=== PATIENT | male | born 1935 | race Caucasian/White ===

== ENCOUNTER 2017-05-29 09:31 | Inpatient (IN) | payer MEDICARE ==
[2017-05-29] MEDS ORDERED: ONDANSETRON 4 MG/2 ML VIAL IVP STA (09:47)
[2017-05-29] MEDS ORDERED: MORPHINE SULFATE 4MG/4ML SYRG IVP ONE (09:48)
--- NOTE | 2017-05-29 10:03 | ED ---
Abdominal Pain HPI - General Chief Complaint: Abdominal Pain Stated Complaint: abd pain Time Seen by Provider: 05/29/17 09:43 Source: patient, RN notes reviewed Mode of arrival: ambulatory Limitations: no limitations - History of Present Illness Initial Comments: This an 81-year-old male presents emergency Department with chief complaint of abdominal pain, abdominal distention. Patient states she's been having worsening pain over the few days. Patient is home which she'll get a paracentesis. Patient had several daughters lifetime. 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 Patient is on break doing chemotherapy. Patient had prior abdominal surgeries including colon resection, liver resection. Patient states that he feels that he needs another paracentesis he's noticed distention weight gain and similar pain. He states his bowel movements have a more firm but this is now the usual. He denies any fevers, chills, chest pain, shortness of breath. Patient states he cannot tolerate the pain at this time. - Related Data Allergies Allergy/AdvReac Type Severity Reaction Status Date / Time No Known Allergies Allergy Verified 05/29/17 09:39 Review of Systems ROS Statement: Those systems with pertinent positive or pertinent negative responses have been documented in the HPI. ROS Other: All systems not noted in ROS Statement are negative. Past Medical History Past Medical History: Cancer, Hyperlipidemia, Hypertension Additional Past Medical History / Comment(s): COLON CANCER WITH METASTASIS TO LIVER. LAST CHEMO TX WAS IN APRIL 2017. History of Any Multi-Drug Resistant Organisms: None Reported Additional Past Surgical History / Comment(s): LIVER SURGERY AND COLON RESECTION Past Psychological History: No Psychological Hx Reported Smoking Status: Never smoker Past Alcohol Use History: Occasional Past Drug Use History: None Reported General Exam Limitations: no limitations General appearance: alert, in no apparent distress Head exam: Present: atraumatic, normocephalic, normal inspection Respiratory exam: Present: normal lung sounds bilaterally. Absent: respiratory distress, wheezes, rales, rhonchi, stridor Cardiovascular Exam: Present: regular rate, normal rhythm, normal heart sounds. Absent: systolic murmur, diastolic murmur, rubs, gallop, clicks GI/Abdominal exam: Present: soft, distended, tenderness, normal bowel sounds. Absent: guarding, rebound, rigid Back exam: Absent: CVA tenderness (R), CVA tenderness (L) Skin exam: Present: warm, dry, intact, normal color. Absent: rash Course Vital Signs 05/29/17 09:34 Temperature 98.1 F Pulse Rate 89 Respiratory 16 Rate Blood Pressure 158/78 O2 Sat by Pulse 98 Oximetry Medical Decision Making - Lab Data Result diagrams: 05/29/17 10:04 05/29/17 10:04 Lab Results 05/29/17 05/29/17 05/29/17 Range/Units 10:04 10:04 10:04 WBC 4.3 (3.8-10.6) k/uL RBC 3.87 L (4.30-5.90) m/uL Hgb 12.4 L (13.0-17.5) gm/dL Hct 38.7 L (39.0-53.0) % MCV 99.9 (80.0-100.0) fL MCH 32.0 (25.0-35.0) pg MCHC 32.1 (31.0-37.0) g/dL RDW 22.8 H (11.5-15.5) % Plt Count 169 (150-450) k/uL Neutrophils % 80 % Lymphocytes % 11 % Monocytes % 5 % Eosinophils % 2 % Basophils % 0 % Neutrophils # 3.5 (1.3-7.7) k/uL Lymphocytes # 0.5 L (1.0-4.8) k/uL Monocytes # 0.2 (0-1.0) k/uL Eosinophils # 0.1 (0-0.7) k/uL Basophils # 0.0 (0-0.2) k/uL Hypochromasia Slight Poikilocytosis (manual Present Anisocytosis Moderate Macrocytosis Marked Target Cells Present PT 11.5 (9.0-12.0) sec INR 1.2 H (<1.2) APTT 36.9 H (22.0-30.0) sec Sodium 141 (137-145) mmol/L Potassium 4.4 (3.5-5.1) mmol/L Chloride 110 H (98-107) mmol/L Carbon Dioxide 21 L (22-30) mmol/L Anion Gap 10 mmol/L BUN 28 H (9-20) mg/dL Creatinine 1.42 H (0.66-1.25) mg/dL Est GFR (CKD-EPI)AfAm 54 (>60 ml/min/1.73 sqM) Est GFR (CKD-EPI)NonAf 47 (>60 ml/min/1.73 sqM) Glucose 104 H (74-99) mg/dL Calcium 9.5 (8.4-10.2) mg/dL Total Bilirubin 0.5 (0.2-1.3) mg/dL AST 32 (17-59) U/L ALT 35 (21-72) U/L Alkaline Phosphatase 137 H (38-126) U/L Total Protein 5.8 L (6.3-8.2) g/dL Albumin 3.3 L (3.5-5.0) g/dL Amylase 55 (30-110) U/L Lipase 68 (23-300) U/L Urine Color Urine Appearance (Clear) Urine pH (5.0-8.0) Ur Specific [place] (1.001-1.035) Urine Protein (Negative) Urine Glucose (UA) (Negative) Urine Ketones (Negative) Urine Blood (Negative) Urine Nitrite (Negative) Urine Bilirubin (Negative) Urine Urobilinogen (<2.0) mg/dL Ur Leukocyte Esterase (Negative) Urine WBC (0-5) /hpf Ur Squamous Epith Cells (0-4) /hpf Urine Bacteria (None) /hpf Hyaline Casts (0-2) /lpf Urine Mucus (None) /hpf 05/29/17 Range/Units 10:10 WBC (3.8-10.6) k/uL RBC (4.30-5.90) m/uL Hgb (13.0-17.5) gm/dL Hct (39.0-53.0) % MCV (80.0-100.0) fL MCH (25.0-35.0) pg MCHC (31.0-37.0) g/dL RDW (11.5-15.5) % Plt Count (150-450) k/uL Neutrophils % % Lymphocytes % % Monocytes % % Eosinophils % % Basophils % % Neutrophils # (1.3-7.7) k/uL Lymphocytes # (1.0-4.8) k/uL Monocytes # (0-1.0) k/uL Eosinophils # (0-0.7) k/uL Basophils # (0-0.2) k/uL Hypochromasia Poikilocytosis (manual Anisocytosis Macrocytosis Target Cells PT (9.0-12.0) sec INR (<1.2) APTT (22.0-30.0) sec Sodium (137-145) mmol/L Potassium (3.5-5.1) mmol/L Chloride (98-107) mmol/L Carbon Dioxide (22-30) mmol/L Anion Gap mmol/L BUN (9-20) mg/dL Creatinine (0.66-1.25) mg/dL Est GFR (CKD-EPI)AfAm (>60 ml/min/1.73 sqM) Est GFR (CKD-EPI)NonAf (>60 ml/min/1.73 sqM) Glucose (74-99) mg/dL Calcium (8.4-10.2) mg/dL Total Bilirubin (0.2-1.3) mg/dL AST (17-59) U/L ALT (21-72) U/L Alkaline Phosphatase (38-126) U/L Total Protein (6.3-8.2) g/dL Albumin (3.5-5.0) g/dL Amylase (30-110) U/L Lipase (23-300) U/L Urine Color Yellow Urine Appearance Cloudy (Clear) Urine pH 5.5 (5.0-8.0) Ur Specific [place] 1.019 (1.001-1.035) Urine Protein 3+ H (Negative) Urine Glucose (UA) Negative (Negative) Urine Ketones Negative (Negative) Urine Blood Negative (Negative) Urine Nitrite Negative (Negative) Urine Bilirubin Negative (Negative) Urine Urobilinogen 2.0 (<2.0) mg/dL Ur Leukocyte Esterase Negative (Negative) Urine WBC 2 (0-5) /hpf Ur Squamous Epith Cells <1 (0-4) /hpf Urine Bacteria Rare H (None) /hpf Hyaline Casts 5 H (0-2) /lpf Urine Mucus Few H (None) /hpf Disposition Clinical Impression: Abdominal distention, Ascites, Colon cancer, Intractable abdominal pain Disposition: ADMITTED IP TO THIS [facility] Condition: Stable Referrals: Salome Caba MD [Primary Care Provider] - 1-2 days
[2017-05-29 10:15] LABS: Anisocytosis Moderate; Basophils % (A) 0 %; Eosinophils # (A) 0.1 k/uL (0-0.7); Eosinophils % (A) 2 %; HCT 38.7 % (39.0-53.0); HGB 12.4 gm/dL (13.0-17.5); Hypochromasia Slight; Lymphocytes # (A) 0.5 k/uL (1.0-4.8); Lymphocytes % (A) 11 %; MCHC 32.1 g/dL (31.0-37.0); MCV 99.9 fL (80.0-100.0); Macrocytosis Marked; Mean Platelet Volume 8.5; Monocytes # (A) 0.2 k/uL (0-1.0); Monocytes % (A) 5 %; Neutrophils # (A) 3.5 k/uL (1.3-7.7); Neutrophils % (A) 80 %; Platelet Count 169 k/uL (150-450); RBC 3.87 m/uL (4.30-5.90); RDW 22.8 % (11.5-15.5); WBC 4.3 k/uL (3.8-10.6)
[2017-05-29 10:24] LABS: INR 1.2 (<1.2); Partial Thromboplastin Time 36.9 sec (22.0-30.0); Prothrombin Time 11.5 sec (9.0-12.0)
[2017-05-29 10:29] LABS: Appearance,Urine Cloudy (Clear); Bacteria,Urine Rare /hpf; Bilirubin,Urine Negative (Negative); Blood,Urine Negative (Negative); Color,Urine Yellow; Glucose,Urine (UA) Negative (Negative); Hyaline Casts,Urine 5 /lpf (0-2); Ketones,Urine Negative (Negative); Leukocyte Esterase,Urine Negative (Negative); Mucus,Urine Few /hpf; Nitrite,Urine Negative (Negative); PH, Urine 5.5 (5.0-8.0); Protein,Urine 3+ (Negative); Specific Gravity,Urine 1.019 (1.001-1.035); Squamous Epithelial Cell,Urine <1 /hpf (0-4); WBC,Urine 2 /hpf (0-5)
[2017-05-29 10:32] LABS: Poikilocytosis (M) Present; Target Cells Present
--- NOTE | 2017-05-29 10:33 | XR ---
EXAMINATION TYPE: XR KUB , 3 VIEWS DATE OF EXAM ORDERED: 05/29/2017 HISTORY: abdominal pain. COMPARISON: None. FINDINGS: The lung bases are clear. Within the abdomen, the abdominal gas pattern is within normal limits. There is no evidence of obstru ction or free air. No unusual calcifications can BE appreciated. IMPRESSION: NO ACUTE INTRA-ABDOMINAL ABNORMALITY.
[2017-05-29 10:41] LABS: Albumin 3.3 g/dL (3.5-5.0); Calcium 9.5 mg/dL (8.4-10.2); Potassium 4.4 mmol/L (3.5-5.1); Total Bilirubin 0.5 mg/dL (0.2-1.3); Total Protein 5.8 g/dL (6.3-8.2)
[2017-05-29] MEDS ORDERED: MORPHINE SULFATE 4MG/4ML SYRG IV PRN (11:05)
[2017-05-29] MEDS ORDERED: ONDANSETRON 4 MG/2 ML VIAL IVP PRN (11:05)
[2017-05-29] MEDS ORDERED: NALOXONE 0.4 MG/ML 1 ML VIAL IV PRN (11:05)
[2017-05-29 12:28] VITALS: BMI 25.7
[2017-05-29] MEDS ORDERED: MORPHINE SULFATE 4MG/4ML SYRG IVP PRN (13:28)
--- NOTE | 2017-05-29 13:34 | P.HPIM ---
History of Present Illness H&P Date: 05/29/17 Chief Complaint: Abdominal pain and distention This is a 81-year-old gentleman with past medical history significant for metastatic colon cancer originally diagnosed in 2009 status post partial colectomy and subsequent partial liver lobectomy in 2013. Patient gets a lot of his care in [place] where he usually spends his winter. He is followed here by Dr. Hidalgo. He said that he was on Xeloda in April. He presented to the hospital with worsening abdominal pain and distention. He had a recent paracentesis approximately 10 days ago in [place] and he feels that the fluid started accumulating in his abdomen again. He is describing his pain as sharp all over his abdomen. At worst the pain is 10 out of 10. He denies any nausea or vomiting. His having normal bowel movements with no difficulty. He was evaluated in the emergency room and is currently admitted to the hospital for therapeutic paracentesis. Review of Systems Review of system: 14 points review of systems were obtained and were negative except to what were mentioned in the HPI. Past Medical History Past Medical History: Cancer, Hyperlipidemia, Hypertension Additional Past Medical History / Comment(s): COLON CANCER WITH METASTASIS TO LIVER. LAST CHEMO [place] WAS IN APRIL 2017. History of Any Multi-Drug Resistant Organisms: None Reported Additional Past Surgical History / Comment(s): LIVER SURGERY AND COLON RESECTION Past Anesthesia/Blood Transfusion Reactions: No Reported Reaction Past Psychological History: No Psychological Hx Reported Smoking Status: Never smoker Past Alcohol Use History: Occasional Past Drug Use History: None Reported - Past Family History Mother Family Medical History: Myocardial Infarction ([place]) Father Family Medical History: CVA/TIA Brother(s) Family Medical History: Coronary Artery Disease (CAD), Deep Vein Thrombosis (DVT ), GI Bleed Additional Family Medical History / Comment(s): xaralto stopped 04/18/17 due to GI bleed Medications and Allergies Home Medications Medication Instructions Recorded Confirmed Type Bee Pollen 550 mg PO DAILY 05/29/17 05/29/17 History Cholecalciferol [Vitamin D3] 400 unit PO DAILY 05/29/17 05/29/17 History Escitalopram [Lexapro] 5 mg PO DAILY 05/29/17 05/29/17 History Fish Oil/Dha/Epa [Fish Oil 1,200 1 cap PO DAILY 05/29/17 05/29/17 History mg Fish Oil] Levothyroxine Sodium 150 mcg PO DAILY 05/29/17 05/29/17 History Pantoprazole Sodium [Protonix] 40 mg PO AC-BID 05/29/17 05/29/17 History Simvastatin [Zocor] 10 mg PO HS 05/29/17 05/29/17 History Allergies Allergy/AdvReac Type Severity Reaction Status Date / Time No Known Allergies Allergy Verified 05/29/17 12:47 Physical Exam Vitals: Vital Signs Temp Pulse Pulse Resp BP BP Pulse Ox 05/29/17 11:54 77 16 167/85 97 05/29/17 11:13 97.4 F L 76 18 163/85 96 05/29/17 09:34 98.1 F 89 16 158/78 98 Intake and Output 05/28/17 05/29/17 05/29/17 22:59 06:59 14:59 Other: Weight 78.925 kg General: The patient is awake and alert, in no distress Eye: there is normal conjunctiva bilaterally. Neck: The neck is supple, there is no JVD. Cardiovascular: Normal S1-S2, no S3-S4, no murmurs. Respiratory: Lungs clear to auscultation bilaterally Gastrointestinal: Abdomen is distended with moderate tenderness to palpation all over the abdomen. Musculoskeletal: There is no pedal edema. Neurological:. Speech is normal. Skin: Skin is warm and dry Results CBC & Chem 7: 05/29/17 10:04 05/29/17 10:04 Labs: Abnormal Lab Results - Last 24 Hours (Table) 05/29/17 05/29/17 05/29/17 Range/Units 10:04 10:04 10:04 RBC 3.87 L (4.30-5.90) m/uL Hgb 12.4 L (13.0-17.5) gm/dL Hct 38.7 L (39.0-53.0) % RDW 22.8 H (11.5-15.5) % Lymphocytes # 0.5 L (1.0-4.8) k/uL INR 1.2 H (<1.2) APTT 36.9 H (22.0-30.0) sec Chloride 110 H (98-107) mmol/L Carbon Dioxide 21 L (22-30) mmol/L BUN 28 H (9-20) mg/dL Creatinine 1.42 H (0.66-1.25) mg/dL Glucose 104 H (74-99) mg/dL Alkaline Phosphatase 137 H (38-126) U/L Total Protein 5.8 L (6.3-8.2) g/dL Albumin 3.3 L (3.5-5.0) g/dL Urine Protein (Negative) Urine Bacteria (None) /hpf Hyaline Casts (0-2) /lpf Urine Mucus (None) /hpf 05/29/17 Range/Units 10:10 RBC (4.30-5.90) m/uL Hgb (13.0-17.5) gm/dL Hct (39.0-53.0) % RDW (11.5-15.5) % Lymphocytes # (1.0-4.8) k/uL INR (<1.2) APTT (22.0-30.0) sec Chloride (98-107) mmol/L Carbon Dioxide (22-30) mmol/L BUN (9-20) mg/dL Creatinine (0.66-1.25) mg/dL Glucose (74-99) mg/dL Alkaline Phosphatase (38-126) U/L Total Protein (6.3-8.2) g/dL Albumin (3.5-5.0) g/dL Urine Protein 3+ H (Negative) Urine Bacteria Rare H (None) /hpf Hyaline Casts 5 H (0-2) /lpf Urine Mucus Few H (None) /hpf Thrombosis Risk Factor Assmnt - Choose All That Apply Each Factor Represents 1 point: Obesity (BMI >25), Swollen legs (current) Each Risk Factor Represents 2 Points: Malignancy Each Risk Factor Represents 3 Points: History of DVT/PE Thrombosis Risk Factor Assessment Total Risk Factor Score: 7 Thrombosis Risk Factor Assessment Level: High Risk Assessment and Plan Assessment: 1. Metastatic colon cancer 2. Malignant ascites 3. Abdominal pain/discomfort 4. Hypothyroidism 5. Acute on chronic kidney injury 6. Hyperlipidemia Today, I reviewed his medication list and lab work results. I would continue IV fluid hydration. Consultation requested for oncology. May consider computed tomography scan of the abdomen with IV contrast tomorrow if kidney function is improved. Ultrasound-guided paracentesis in the morning for symptomatic relief. Pain control and anti-emetic as needed. Plan of care discussed with patient and his at bedside.
[2017-05-29] MEDS: PANTOPRAZOLE 40 MG TABLET PO SCH (17:41)
[2017-05-29] MEDS: HYDROcodone/APAP 5-325MG 1 EACH TAB PO PRN (17:46)
[2017-05-29] MEDS: HEPARIN SODIUM,PORCINE 5,000 UNIT/ML 1 ML VIAL SQ SCH (20:33)
[2017-05-29] MEDS: ATORVASTATIN 10 MG TAB PO SCH (20:36)
[2017-05-29] MEDS: SODIUM CHLORIDE 0.9% 1,000 ML IV SCH (20:36)
[2017-05-30] MEDS: LEVOTHYROXINE 75 MCG TAB PO SCH (05:42)
[2017-05-30] MEDS: HYDROcodone/APAP 5-325MG 1 EACH TAB PO PRN (05:43)
[2017-05-30] MEDS: SODIUM CHLORIDE 0.9% 1,000 ML IV SCH ×3 (05:45→21:24)
[2017-05-30] MEDS: HEPARIN SODIUM,PORCINE 5,000 UNIT/ML 1 ML VIAL SQ SCH ×2 (07:16→20:01)
[2017-05-30] MEDS: ESCITALOPRAM 5 MG TAB PO SCH (07:22)
[2017-05-30] MEDS: PANTOPRAZOLE 40 MG TABLET PO SCH ×2 (07:22→18:47)
[2017-05-30 08:03] LABS: Albumin 2.8 g/dL (3.5-5.0); Calcium 8.8 mg/dL (8.4-10.2); Potassium 4.8 mmol/L (3.5-5.1); Total Bilirubin 0.3 mg/dL (0.2-1.3); Total Protein 5.1 g/dL (6.3-8.2)
[2017-05-30 08:23] LABS: Anisocytosis Moderate; Basophils % (A) 0 %; Eosinophils # (A) 0.1 k/uL (0-0.7); Eosinophils % (A) 4 %; HCT 36.5 % (39.0-53.0); HGB 11.8 gm/dL (13.0-17.5); Hypochromasia Moderate; Lymphocytes # (A) 0.5 k/uL (1.0-4.8); Lymphocytes % (A) 15 %; MCH 32.6 pg (25.0-35.0); MCHC 32.3 g/dL (31.0-37.0); MCV 101.1 fL (80.0-100.0); Macrocytosis Marked; Monocytes # (A) 0.2 k/uL (0-1.0); Monocytes % (A) 6 %; Neutrophils # (A) 2.5 k/uL (1.3-7.7); Neutrophils % (A) 73 %; Platelet Count 161 k/uL (150-450); RBC 3.61 m/uL (4.30-5.90); RDW 22.3 % (11.5-15.5)
[2017-05-30] MEDS ORDERED: MORPHINE ORAL SOLN 10 MG/5 ML CUP PO PRN (09:19)
[2017-05-30] MEDS: SENNOSIDES-DOCUSATE SODIUM 1 EACH TAB PO SCH (10:47)
[2017-05-30 11:10] LABS: WBC 3.4 k/uL (3.8-10.6)
[2017-05-30 11:11] LABS: Anisocytosis (M) Present; Poikilocytosis (M) Present; Target Cells Present
--- NOTE | 2017-05-30 12:47 | P.PN ---
Subjective No acute events overnight. Patient went for ultrasound guided paracentesis this morning. Objective - Vital Signs Vital signs: Vital Signs Temp 97.5 F L 05/30/17 07:00 Pulse 69 05/30/17 12:33 Resp 20 05/30/17 12:33 BP 174/87 05/30/17 12:33 Pulse Ox 95 05/30/17 12:33 Intake & Output 05/29/17 05/30/17 05/30/17 18:59 06:59 18:59 Intake Total 450 875 Balance 450 875 Weight 78.925 kg Intake: IV 450 675 Sodium Chloride 0.9% 1, 450 675 000 ml @ 75 mls/hr IV . [id number] MARILYN Rx#:[id number] Oral 200 Other: Voiding Method Toilet Toilet # Voids 1 - Exam General: The patient is awake and alert, in no distress Eye: there is normal conjunctiva bilaterally. Neck: The neck is supple, there is no JVD. Cardiovascular: Normal S1-S2, no S3-S4, no murmurs. Respiratory: Lungs clear to auscultation bilaterally Gastrointestinal: Abdomen is soft, significantly distended Musculoskeletal: There is no pedal edema. Neurological:. Speech is normal. Skin: Skin is warm and dry - Labs CBC & Chem 7: 05/30/17 07:16 05/30/17 07:16 Labs: Abnormal Lab Results - Last 24 Hours (Table) 05/30/17 05/30/17 Range/Units 07:16 07:16 WBC 3.4 L (3.8-10.6) k/uL RBC 3.61 L (4.30-5.90) m/uL Hgb 11.8 L (13.0-17.5) gm/dL Hct 36.5 L (39.0-53.0) % MCV 101.1 H (80.0-100.0) fL RDW 22.3 H (11.5-15.5) % Lymphocytes # 0.5 L (1.0-4.8) k/uL Chloride 110 H (98-107) mmol/L BUN 23 H (9-20) mg/dL Creatinine 1.27 H (0.66-1.25) mg/dL Total Protein 5.1 L (6.3-8.2) g/dL Albumin 2.8 L (3.5-5.0) g/dL Assessment and Plan Assessment: 1. Metastatic colon cancer 2. Malignant ascites 3. Abdominal pain/discomfort 4. Hypothyroidism: Maintained on levothyroxin 5. Acute on chronic kidney injury: Creatinine improving gradually with IV fluid hydration 6. Hyperlipidemia Today, I reviewed his medication list and lab work results. Ultrasound-guided paracentesis scheduled today. Pain control and anti-emetic as needed. Awaiting oncology evaluation. Continue current regimen otherwise. Repeat lab work in the morning.
--- NOTE | 2017-05-30 14:25 | US ---
EXAMINATION TYPE: US paracentesis abd w/image DATE OF EXAM: 05/30/2017 COMPARISON: NONE HISTORY: Ascites. PROCEDURE: Maximal barrier technique was utilized. The skin overlying a suitable pocket of fluid was localized with ultrasound and the overlying skin was prepped and draped. Ultrasound was utilized with sterile technique. Lidocaine was used for local anesthesia and a skin oly made with a scalpel. Catheter was advanced under direct ultrasound guidance into a suitable pocket of fluid and approximately 4.4 liter s of serous fluid were removed. Catheter was withdrawn and hemostasis achieved. There is no immedia te complication; the patient is discharged in stable condition. IMPRESSION: STATUS POST ULTRASOUND GUIDED PARACENTESIS FOR PALLIATION OF ASCITES. THIS PROCEDURE WA S PERFORMED BY THE UNDERSIGNED. Specimen obtained for laboratory analysis.
--- NOTE | 2017-05-30 18:34 | P.CONS ---
History of Present Illness - Reason for Consult Consult date: 05/30/17 Progressive ascites and abdominal pain. Metastatic colon cancer - History of Present Illness The patient is a 89-year-old gentleman, well-known to our service. He is followed by Dr. Hidalgo in the outpatient setting. He was initially diagnosed in 2009 with colon cancer and was treated with partial colectomy and adjuvant chemotherapy. He developed acetic recurrence in the liver which was initially limited, in 2013 and was treated again with liver lobectomy and chemotherapy. He subsequently developed progression again and has had various lines of therapy. He did have recurrent ascites in 2013 and required several paracentesis. This resolved with change in regimen. The patient spends a considerable amount of time in [place], and has oncology follow-up and treatment there while he gets treatment here in the summer. He was most recently on Xeloda, with PET scans done in [place] in early 05/01 showing progression. Xeloda was therefore stopped. He decided to return to [place] and was supposed to see Dr. perry in the office on 06/03/17 to start a different regimen. He did develop progressive abdominal distention and had 2 L of ascites drained in [place], about 2 weeks ago, with improvement in symptoms of abdominal pain. He came back into the hospital, as he was having progressive swelling of the abdomen over the last 3-4 days, with increasing pain. He is also not had a bowel movement about 3 days now. Clinically he appeared to have recurrent ascites. Consult was therefore placed for further evaluation and recommendations The actual pathology is not available, but the patient states that to the best of his knowledge, the ascites fluid tapped recently was negative for malignancy Review of Systems Constitutional: Reports anorexia, Reports fatigue Eyes: denies blurred vision, denies pain Ears: deny: decreased hearing, ear discharge, earache, tinnitus Ears, nose, mouth and throat: Denies headache, Denies sore throat Cardiovascular: Reports decreased exercise tolerance Respiratory: Denies cough Gastrointestinal: Reports as per HPI, Reports abdominal pain, Reports constipation Genitourinary: Reports as per HPI Musculoskeletal: Denies myalgias Integumentary: Denies pruritus, Denies rash Neurological: Denies numbness, Denies weakness Psychiatric: Denies anxiety, Denies depression Endocrine: Denies fatigue, Denies weight change Hematologic/Lymphatic: Reports as per HPI Past Medical History Past Medical History: Cancer, Hyperlipidemia, Hypertension Additional Past Medical History / Comment(s): COLON CANCER WITH METASTASIS TO LIVER. LAST CHEMO [place] WAS IN APRIL 2017. History of Any Multi-Drug Resistant Organisms: None Reported Additional Past Surgical History / Comment(s): LIVER SURGERY AND COLON RESECTION Past Anesthesia/Blood Transfusion Reactions: No Reported Reaction Past Psychological History: No Psychological Hx Reported Smoking Status: Never smoker Past Alcohol Use History: Occasional Past Drug Use History: None Reported - Past Family History Mother Family Medical History: Myocardial Infarction ([place]) Father Family Medical History: CVA/TIA Brother(s) Family Medical History: Coronary Artery Disease (CAD), Deep Vein Thrombosis (DVT ), GI Bleed Additional Family Medical History / Comment(s): xaralto stopped 04/18/17 due to GI bleed Medications and Allergies Home Medications Medication Instructions Recorded Confirmed Type Bee Pollen 550 mg PO DAILY 05/29/17 05/29/17 History Cholecalciferol [Vitamin D3] 400 unit PO DAILY 05/29/17 05/29/17 History Escitalopram [Lexapro] 5 mg PO DAILY 05/29/17 05/29/17 History Fish Oil/Dha/Epa [Fish Oil 1,200 1 cap PO DAILY 05/29/17 05/29/17 History mg Fish Oil] Levothyroxine Sodium 150 mcg PO DAILY 05/29/17 05/29/17 History Pantoprazole Sodium [Protonix] 40 mg PO AC-BID 05/29/17 05/29/17 History Simvastatin [Zocor] 10 mg PO HS 05/29/17 05/29/17 History Allergies Allergy/AdvReac Type Severity Reaction Status Date / Time No Known Allergies Allergy Verified 05/29/17 12:47 Physical Exam Vitals: Vital Signs Temp Pulse Resp BP Pulse Ox 05/30/17 15:00 97.6 F 63 16 142/75 94 L 05/30/17 13:30 64 20 166/87 94 L 05/30/17 13:19 60 20 174/86 94 L 05/30/17 13:10 68 20 160/78 96 05/30/17 13:00 64 20 168/85 97 05/30/17 12:33 69 20 174/87 95 05/30/17 07:00 97.5 F L 72 16 146/73 93 L 05/29/17 22:20 97.9 F 68 16 151/81 93 L Intake and Output 05/30/17 05/30/17 05/30/17 06:59 14:59 22:59 Intake Total 675 500 Balance 675 500 Intake: IV 675 Sodium Chloride 0.9% 1, 675 000 ml @ 75 mls/hr IV . [id number] MARILYN Rx#:[id number] Oral 500 Other: Voiding Method Toilet Toilet # Voids 1 4 - Constitutional General appearance: no acute distress - EENT Eyes: EOMI, PERRLA ENT: hearing grossly normal, normal oropharynx - Neck Neck: no lymphadenopathy Thyroid: bilateral: normal size - Respiratory Respiratory: bilateral: CTA - Cardiovascular Rhythm: regular Heart sounds: normal: S1, S2 - Gastrointestinal Free fluid positive by exam General gastrointestinal: distended - Integumentary Integumentary: normal - Neurologic Neurologic: CNII-XII intact - Musculoskeletal Musculoskeletal: strength equal bilaterally - Psychiatric Psychiatric: A&O x's 3, appropriate affect, intact judgment & insight Results CBC & Chem 7: 05/30/17 07:16 05/30/17 07:16 Labs: Abnormal Lab Results - Last 24 Hours (Table) 05/30/17 05/30/17 Range/Units 07:16 07:16 WBC 3.4 L (3.8-10.6) k/uL RBC 3.61 L (4.30-5.90) m/uL Hgb 11.8 L (13.0-17.5) gm/dL Hct 36.5 L (39.0-53.0) % MCV 101.1 H (80.0-100.0) fL RDW 22.3 H (11.5-15.5) % Lymphocytes # 0.5 L (1.0-4.8) k/uL Chloride 110 H (98-107) mmol/L BUN 23 H (9-20) mg/dL Creatinine 1.27 H (0.66-1.25) mg/dL Total Protein 5.1 L (6.3-8.2) g/dL Albumin 2.8 L (3.5-5.0) g/dL Abdominal x-ray: report reviewed Assessment and Plan (1) Ascites Narrative/Plan: The patient has had recurrent acute regulation of ascites fluid since his recent Pap. His abdominal symptoms of discomfort and tightness appear to be related to the recurrence of the ascites. He was actually not on any pain medications at home chronically. Constipation could be contributing to that, the ascites itself will cause constipation. - The patient has had good response of his pain to current pain medications. Continue same - Interventional radiology consult for ultrasound-guided paracentesis has been ordered. I will add fluid analysis including cytology, abdomen, and microbiology studies. - If the patient has good symptom relief with paracentesis, he can likely be discharged subsequently Current Visit: Yes Status: Acute Code(s): R18.8 - OTHER ASCITES SNOMED Code(s): 181420844 (2) Colon cancer Narrative/Plan: Recent progression has been documented, due to weight Xeloda was stopped. He will undergo change of therapy, after his scheduled office visit with Dr. Hidalgo Current Visit: Yes Status: Acute Code(s): C18.9 - MALIGNANT NEOPLASM OF COLON, UNSPECIFIED SNOMED Code(s): 613131797
[2017-05-30] MEDS: ATORVASTATIN 10 MG TAB PO SCH (20:01)
[2017-05-31] MEDS: LEVOTHYROXINE 75 MCG TAB PO SCH (06:18)
[2017-05-31] MEDS: HYDROcodone/APAP 5-325MG 1 EACH TAB PO PRN (06:20)
[2017-05-31 08:07] LABS: Albumin 2.5 g/dL (3.5-5.0); Anisocytosis Moderate; Basophils % (A) 0 %; Calcium 8.6 mg/dL (8.4-10.2); Eosinophils # (A) 0.1 k/uL (0-0.7); Eosinophils % (A) 3 %; HCT 37.4 % (39.0-53.0); HGB 11.6 gm/dL (13.0-17.5); Hypochromasia Marked; Lymphocytes # (A) 0.5 k/uL (1.0-4.8); Lymphocytes % (A) 14 %; MCH 31.8 pg (25.0-35.0); MCHC 30.9 g/dL (31.0-37.0); MCV 102.7 fL (80.0-100.0); Macrocytosis Marked; Mean Platelet Volume 8.5; Monocytes # (A) 0.2 k/uL (0-1.0); Monocytes % (A) 6 %; Neutrophils # (A) 2.6 k/uL (1.3-7.7); Neutrophils % (A) 76 %; Platelet Count 139 k/uL (150-450); Potassium 4.8 mmol/L (3.5-5.1); RBC 3.64 m/uL (4.30-5.90); RDW 22.4 % (11.5-15.5); Total Bilirubin 0.3 mg/dL (0.2-1.3); Total Protein 4.7 g/dL (6.3-8.2); WBC 3.5 k/uL (3.8-10.6)
[2017-05-31] MEDS: SODIUM CHLORIDE 0.9% 1,000 ML IV SCH ×2 (08:42→20:47)
[2017-05-31] MEDS: PANTOPRAZOLE 40 MG TABLET PO SCH ×2 (08:45→16:59)
[2017-05-31] MEDS: SENNOSIDES-DOCUSATE SODIUM 1 EACH TAB PO SCH (08:45)
[2017-05-31] MEDS: ESCITALOPRAM 5 MG TAB PO SCH (08:45)
[2017-05-31] MEDS: HEPARIN SODIUM,PORCINE 5,000 UNIT/ML 1 ML VIAL SQ SCH ×2 (08:45→20:48)
--- NOTE | 2017-05-31 09:24 | CDI ---
Last Revision, January 2017 Documentation Clarification Form Date: 05/31/2017 9:12:00 AM From: Rosalind VillatoroCaraballoAMIE, CCDS Admit Date: 05/29/2017 11:04:00 AM Patient Name: Tyler Klein Visit Number: [id number] Discharge Date: ATTENTION: The Clinical Documentation Specialists (CDI) and [facility] Coding Staff appreciate your assistance in clarifying documentation. Please respond to the clarification below the line at the bottom and electronically sign. The CDI & [facility] Coding staff will review the response and follow-up if needed. Please note: Queries are made part of the Legal Health Record. If you have any questions, please contact the author of this message via ITS. Dr. 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 Also diagnosed with Acute on chronic kidney injury. History/Risk Factors: Colon CA with mets to the liver, Hypertension, Hyperlipidemia. Clinical Indicators: Recent paracentesis performed in [place], admit for gd paracentesis. Current BUN/CR/GFR: 28 / .42 Patients Baseline: BUN/CR/GFR: unknown or not documented. Treatment: IV fluids prior to paracentesis, IV Ms, IV Zofran, Heparin sq Patients medications include: Zocor, Protonix, Levothyroxine Na, Lexapro In order to capture the severity of condition, please clarify if the condition signifies: CKD Stage 1 (GFR > 90) CKD Stage 2 (GFR 60-89) CKD Stage 3 (GFR 30-59) CKD Stage 4 (GFR 15-29) CKD Stage 5 (GFR <15) ESRD Other, please specify Unable to determine Please continue to document in your progress notes and discharge summary in order to capture severity of illness and risk of mortality. Include clinical findings that support your diagnosis. MTDD
[2017-05-31 09:38] LABS: Target Cells Present
--- NOTE | 2017-05-31 12:40 | P.PN ---
Subjective Progress Note Date: 05/31/17 Patient said that his abdominal distention got worse since last night. He feels his abdomen is back to what it was prior to the paracentesis. He said that right after the paracentesis his abdomen was almost flat and now is getting distended by the maintenance. He is having some abdominal pain. Objective - Vital Signs Vital signs: Vital Signs Temp 96.5 F L 05/30/17 23:00 Pulse 89 05/31/17 07:40 Resp 18 05/31/17 07:40 BP 154/74 05/31/17 07:40 Pulse Ox 94 L 05/31/17 07:40 Intake & Output 05/30/17 05/31/17 05/31/17 18:59 06:59 18:59 Intake Total 500 1175 Balance 500 1175 Intake: IV 675 Sodium Chloride 0.9% 1, 675 000 ml @ 75 mls/hr IV . [id number] MARILYN Rx#:[id number] Oral 500 500 Other: Voiding Method Toilet Toilet # Voids 4 2 - Exam General: The patient is awake and alert, in no distress Eye: there is normal conjunctiva bilaterally. Neck: The neck is supple, there is no JVD. Cardiovascular: Normal S1-S2, no S3-S4, no murmurs. Respiratory: Lungs clear to auscultation bilaterally Gastrointestinal: Abdomen is soft, significantly distended with evidence of fluid shifting Musculoskeletal: There is no pedal edema. Neurological:. Speech is normal. Skin: Skin is warm and dry - Labs CBC & Chem 7: 05/31/17 07:07 05/31/17 07:07 Labs: Abnormal Lab Results - Last 24 Hours (Table) 05/31/17 05/31/17 Range/Units 07:07 07:07 WBC 3.5 L (3.8-10.6) k/uL RBC 3.64 L (4.30-5.90) m/uL Hgb 11.6 L (13.0-17.5) gm/dL Hct 37.4 L (39.0-53.0) % MCV 102.7 H (80.0-100.0) fL MCHC 30.9 L (31.0-37.0) g/dL RDW 22.4 H (11.5-15.5) % Plt Count 139 L (150-450) k/uL Lymphocytes # 0.5 L (1.0-4.8) k/uL Chloride 111 H (98-107) mmol/L Carbon Dioxide 21 L (22-30) mmol/L Total Protein 4.7 L (6.3-8.2) g/dL Albumin 2.5 L (3.5-5.0) g/dL Microbiology - Last 24 Hours (Table) 05/30/17 12:50 Gram Stain - Preliminary Paracentesis Fluid Body Fluid Culture - Preliminary 05/30/17 12:50 Anaerobic Culture - Preliminary Paracentesis Fluid Assessment and Plan Assessment: 1. Metastatic colon cancer: seen and evaluated by oncology. Plan to resume chemotherapy as an outpatient. 2. Malignant ascites: Status post paracentesis on 05/30 with approximately 4.4 L of fluid removed from reaccumulating over 24 hours. I would order another ultrasound-guided paracentesis. 3. Abdominal pain/discomfort 4. Hypothyroidism: Maintained on levothyroxin 5. Acute on chronic kidney injury: Creatinine improving gradually with IV fluid hydration 6. Hyperlipidemia Today, I reviewed his medication list and lab work results. Pain control and anti-emetic as needed. Continue current regimen otherwise. Repeat lab work in the morning.
[2017-05-31] MEDS ORDERED: MORPHINE ORAL SOLN 10 MG/5 ML CUP PO PRN (12:41)
--- NOTE | 2017-05-31 13:52 | US ---
EXAMINATION TYPE: US abdomen limited DATE OF EXAM: 05/31/2017 COMPARISON: 2018 CLINICAL HISTORY: access for ascites. Fluid check, exam done portable. Mild to moderate amount of ascites seen within all 4 quadrants identified on images saved. IMPRESSION: As above
[2017-05-31] MEDS: ALBUMIN HUMAN 25% 50 ML in EMPTY BAG 1 BAG IVPB SCH ×3 (16:52→16:55)
--- NOTE | 2017-05-31 18:29 | P.PN ---
Subjective Progress Note Date: 05/31/17 Principal diagnosis: Progressive Colon Cancer Patient seen in follow-up. He denies nausea, does complain of constipation and obvious abdominal ascites Objective - Vital Signs Vital signs: Vital Signs Temp 97.5 F L 05/31/17 14:35 Pulse 66 05/31/17 14:35 Resp 18 05/31/17 14:35 BP 156/78 05/31/17 14:35 Pulse Ox 95 05/31/17 14:35 Intake & Output 05/30/17 05/31/17 05/31/17 18:59 06:59 18:59 Intake Total 500 1175 Balance 500 1175 Intake: IV 675 Sodium Chloride 0.9% 1, 675 000 ml @ 75 mls/hr IV . [id number] MARILYN Rx#:[id number] Oral 500 500 Other: Voiding Method Toilet Toilet Toilet # Voids 4 2 5 # Bowel Movements 1 - Constitutional General appearance: Present: cooperative, no acute distress - EENT Eyes: Present: EOMI, PERRLA ENT: Present: NA/AT, normal oropharynx - Neck Details: Supple, Trachea midline - Respiratory Respiratory: bilateral: diminished (Lower Lobes) - Cardiovascular Rhythm: regular - Gastrointestinal General gastrointestinal: Present: distended, tenderness - Integumentary Integumentary: Present: pale - Neurologic Neurologic: Present: CNII-XII intact - Musculoskeletal Musculoskeletal: Present: generalized weakness, strength equal bilaterally - Psychiatric Psychiatric: Present: A&O x's 3, appropriate affect, intact judgment & insight - Labs CBC & Chem 7: 05/31/17 07:07 05/31/17 07:07 Labs: Abnormal Lab Results - Last 24 Hours (Table) 05/31/17 05/31/17 Range/Units 07:07 07:07 WBC 3.5 L (3.8-10.6) k/uL RBC 3.64 L (4.30-5.90) m/uL Hgb 11.6 L (13.0-17.5) gm/dL Hct 37.4 L (39.0-53.0) % MCV 102.7 H (80.0-100.0) fL MCHC 30.9 L (31.0-37.0) g/dL RDW 22.4 H (11.5-15.5) % Plt Count 139 L (150-450) k/uL Lymphocytes # 0.5 L (1.0-4.8) k/uL Chloride 111 H (98-107) mmol/L Carbon Dioxide 21 L (22-30) mmol/L Total Protein 4.7 L (6.3-8.2) g/dL Albumin 2.5 L (3.5-5.0) g/dL Microbiology - Last 24 Hours (Table) 05/30/17 12:50 Gram Stain - Preliminary Paracentesis Fluid Body Fluid Culture - Preliminary 05/30/17 12:50 Anaerobic Culture - Preliminary Paracentesis Fluid Assessment and Plan (1) Ascites Narrative/Plan: 1. Paracentesis with cytology 2. Prob related to progressive metastatic colon cancer Current Visit: Yes Status: Acute Code(s): R18.8 - OTHER ASCITES SNOMED Code(s): 218737056 (2) Colon cancer Narrative/Plan: 1. Likely progressive cancer on xeloda past 6 months 2. Stop xeloda and plan for next line therapy with Lonsurf 3. Check CEA and confirm restaging scans 4. Will make follow-up with Dr. Hidalgo in office this week or early next Current Visit: Yes Status: Acute Code(s): C18.9 - MALIGNANT NEOPLASM OF COLON, UNSPECIFIED SNOMED Code(s): 981397838
[2017-05-31] MEDS: ATORVASTATIN 10 MG TAB PO SCH (20:48)
[2017-06-01] MEDS: LEVOTHYROXINE 75 MCG TAB PO SCH (06:15)
[2017-06-01 07:35] LABS: Anisocytosis Moderate; Basophils % (A) 0 %; Eosinophils # (A) 0.1 k/uL (0-0.7); Eosinophils % (A) 3 %; HGB 11.7 gm/dL (13.0-17.5); Hypochromasia Marked; Lymphocytes # (A) 0.5 k/uL (1.0-4.8); Lymphocytes % (A) 13 %; MCH 31.4 pg (25.0-35.0); MCHC 30.9 g/dL (31.0-37.0); MCV 101.6 fL (80.0-100.0); Macrocytosis Marked; Mean Platelet Volume 8.4; Monocytes # (A) 0.2 k/uL (0-1.0); Monocytes % (A) 6 %; Neutrophils # (A) 2.9 k/uL (1.3-7.7); Neutrophils % (A) 77 %; Platelet Count 143 k/uL (150-450); RBC 3.74 m/uL (4.30-5.90); RDW 22.5 % (11.5-15.5); WBC 3.7 k/uL (3.8-10.6)
[2017-06-01] MEDS: SENNOSIDES-DOCUSATE SODIUM 1 EACH TAB PO SCH (07:36)
[2017-06-01 07:38] LABS: INR 1.2 (<1.2); Prothrombin Time 11.7 sec (9.0-12.0)
[2017-06-01] MEDS: HEPARIN SODIUM,PORCINE 5,000 UNIT/ML 1 ML VIAL SQ SCH ×2 (07:40→20:28)
[2017-06-01] MEDS: ESCITALOPRAM 5 MG TAB PO SCH (07:40)
[2017-06-01] MEDS: PANTOPRAZOLE 40 MG TABLET PO SCH ×2 (07:41→16:57)
[2017-06-01] MEDS: HYDROcodone/APAP 5-325MG 1 EACH TAB PO PRN (07:41)
[2017-06-01 08:02] LABS: Albumin 2.7 g/dL (3.5-5.0); Calcium 8.8 mg/dL (8.4-10.2); Potassium 4.8 mmol/L (3.5-5.1); Total Bilirubin 0.4 mg/dL (0.2-1.3)
--- NOTE | 2017-06-01 11:43 | P.PN ---
Subjective no events overnight. Ultrasound guided paracentesis was not done yesterday and planned to be done today. Objective - Vital Signs Vital signs: Vital Signs Temp 98 F 06/01/17 06:50 Pulse 66 06/01/17 06:50 Resp 22 06/01/17 06:50 BP 168/86 06/01/17 06:50 Pulse Ox 95 06/01/17 06:50 Intake & Output 05/31/17 06/01/17 06/01/17 18:59 06:59 18:59 Intake Total 990 Balance 990 Intake: Oral 990 Other: Voiding Method Toilet Toilet Toilet # Voids 5 2 # Bowel Movements 1 - Exam General: The patient is awake and alert, in no distress Eye: there is normal conjunctiva bilaterally. Neck: The neck is supple, there is no JVD. Cardiovascular: Normal S1-S2, no S3-S4, no murmurs. Respiratory: Lungs clear to auscultation bilaterally Gastrointestinal: Abdomen is soft, significantly distended with evidence of fluid shifting Musculoskeletal: There is no pedal edema. Neurological:. Speech is normal. Skin: Skin is warm and dry - Labs CBC & Chem 7: 06/01/17 07:08 06/01/17 07:08 Labs: Abnormal Lab Results - Last 24 Hours (Table) 06/01/17 06/01/17 06/01/17 Range/Units 07:08 07:08 07:08 WBC 3.7 L (3.8-10.6) k/uL RBC 3.74 L (4.30-5.90) m/uL Hgb 11.7 L (13.0-17.5) gm/dL Hct 38.0 L (39.0-53.0) % MCV 101.6 H (80.0-100.0) fL MCHC 30.9 L (31.0-37.0) g/dL RDW 22.5 H (11.5-15.5) % Plt Count 143 L (150-450) k/uL Lymphocytes # 0.5 L (1.0-4.8) k/uL INR 1.2 H (<1.2) Chloride 111 H (98-107) mmol/L Carbon Dioxide 20 L (22-30) mmol/L BUN 21 H (9-20) mg/dL Creatinine 1.26 H (0.66-1.25) mg/dL Total Protein 5.0 L (6.3-8.2) g/dL Albumin 2.7 L (3.5-5.0) g/dL Microbiology - Last 24 Hours (Table) 05/30/17 12:50 Gram Stain - Preliminary Paracentesis Fluid Body Fluid Culture - Preliminary Assessment and Plan Assessment: 1. Metastatic colon cancer: seen and evaluated by oncology. Plan to resume chemotherapy as an outpatient. 2. Malignant ascites: Status post paracentesis on 05/30 with approximately 4.4 L of fluid removed from reaccumulating over 24 hours. Repeat ultrasound-guided paracentesis scheduled for today. 3. Abdominal pain/discomfort 4. Hypothyroidism: Maintained on levothyroxin 5. Acute on chronic kidney injury: Creatinine improving gradually with IV fluid hydration 6. Hyperlipidemia Today, I reviewed his medication list and lab work results. Pain control and anti-emetic as needed. Continue current regimen otherwise. Repeat lab work in the morning.
--- NOTE | 2017-06-01 14:59 | US ---
EXAMINATION TYPE: US paracentesis abd w/image DATE OF EXAM: 06/01/2017 COMPARISON: NONE HISTORY: Ascites. PROCEDURE: Maximal barrier technique was utilized. The skin overlying a suitable pocket of fluid was localized with ultrasound and the overlying skin was prepped and draped. Ultrasound was utilized with sterile technique. Lidocaine was used for local anesthesia and a skin oly made with a scalpel. Catheter was advanced under direct ultrasound guidance into a suitable pocket of fluid and approximately 4.1 liter s of serous fluid were removed. Catheter was withdrawn and hemostasis achieved. There is no immedia te complication; the patient is discharged in stable condition. IMPRESSION: STATUS POST ULTRASOUND GUIDED PARACENTESIS FOR PALLIATION OF ASCITES. THIS PROCEDURE WA S PERFORMED BY THE UNDERSIGNED.
[2017-06-01] MEDS: ATORVASTATIN 10 MG TAB PO SCH (20:28)
[2017-06-01] MEDS: amLODIPine 10 MG TAB PO SCH (21:42)
[2017-06-02] MEDS: LEVOTHYROXINE 75 MCG TAB PO SCH (06:20)
[2017-06-02 07:37] VITALS: BP 167/88; PULSE 68; RESP 20; TEMP 97.1
[2017-06-02 07:59] LABS: Albumin 2.8 g/dL (3.5-5.0); Calcium 9.2 mg/dL (8.4-10.2); Potassium 4.7 mmol/L (3.5-5.1); Total Bilirubin 0.4 mg/dL (0.2-1.3); Total Protein 5.1 g/dL (6.3-8.2)
[2017-06-02 08:09] LABS: Anisocytosis Moderate; Basophils % (A) 0 %; Eosinophils # (A) 0.1 k/uL (0-0.7); Eosinophils % (A) 3 %; HCT 41.9 % (39.0-53.0); HGB 13.1 gm/dL (13.0-17.5); Hypochromasia Slight; Lymphocytes # (A) 0.6 k/uL (1.0-4.8); Lymphocytes % (A) 13 %; MCH 31.5 pg (25.0-35.0); MCHC 31.2 g/dL (31.0-37.0); Macrocytosis Marked; Monocytes # (A) 0.2 k/uL (0-1.0); Monocytes % (A) 4 %; Neutrophils # (A) 3.3 k/uL (1.3-7.7); Neutrophils % (A) 76 %; Platelet Count 167 k/uL (150-450); RBC 4.15 m/uL (4.30-5.90); RDW 22.1 % (11.5-15.5); WBC 4.3 k/uL (3.8-10.6)
[2017-06-02] MEDS: HEPARIN SODIUM,PORCINE 5,000 UNIT/ML 1 ML VIAL SQ SCH (08:30)
[2017-06-02] MEDS: amLODIPine 10 MG TAB PO SCH (08:30)
[2017-06-02] MEDS: ESCITALOPRAM 5 MG TAB PO SCH (08:30)
[2017-06-02] MEDS: PANTOPRAZOLE 40 MG TABLET PO SCH (08:30)
[2017-06-02] MEDS: SENNOSIDES-DOCUSATE SODIUM 1 EACH TAB PO SCH (08:32)
[2017-06-02] MEDS: HYDROcodone/APAP 5-325MG 1 EACH TAB PO PRN (08:34)
[2017-06-02 10:55] LABS: Target Cells Present
[2017-06-02 10:56] LABS: RBC Fragments Present
--- NOTE | 2017-06-02 12:10 | P.DS ---
Providers Date of admission: 05/29/17 11:04 Expected date of discharge: 06/02/17 Attending physician: Braden Jackson Consults: 05/29/17 13:28 Consult Physician Routine Consulting Provider: Tu Hidalgo Consult Reason/Comments: met colon ca Do you want consulting provider notified?: Yes Primary care physician: [facility] Course: 1. Metastatic colon cancer: seen and evaluated by oncology. Plan to resume chemotherapy as an outpatient. 2. Malignant ascites: Status post paracentesis on 05/30 with approximately 4.4 L of fluid removed and repeat paracentesis on 06/01 with approximately 4.1 L removed. 3. Abdominal pain/discomfort 4. Hypothyroidism: Maintained on levothyroxin 5. Acute on chronic kidney injury: Creatinine improving gradually with IV fluid hydration 6. Hyperlipidemia Patient will be discharged home in a stable condition. We will try to give him a standing order for ultrasound-guided paracentesis in case his symptoms recur he can go in without going through the emergency room for paracentesis. Plan to follow-up with oncology in the next week or 2 to discuss chemotherapy Patient Condition at Discharge: Stable Plan - Discharge Summary Discharge Rx Participant: No New Discharge Prescriptions: No Action Simvastatin [Zocor] 10 mg PO HS Escitalopram [Lexapro] 5 mg PO DAILY Levothyroxine Sodium 150 mcg PO DAILY Cholecalciferol [Vitamin D3] 400 unit PO DAILY Pantoprazole Sodium [Protonix] 40 mg PO AC-BID Fish Oil/Dha/Epa [Fish Oil 1,200 mg Fish Oil] 1 cap PO DAILY Bee Pollen 550 mg PO DAILY amLODIPine BESYLATE [Norvasc] 10 mg PO DAILY Discharge Medication List Bee Pollen 550 mg PO DAILY 05/29/17 [History] Cholecalciferol [Vitamin D3] 400 unit PO DAILY 05/29/17 [History] Escitalopram [Lexapro] 5 mg PO DAILY 05/29/17 [History] Fish Oil/Dha/Epa [Fish Oil 1,200 mg Fish Oil] 1 cap PO DAILY 05/29/17 [History] Levothyroxine Sodium 150 mcg PO DAILY 05/29/17 [History] Pantoprazole Sodium [Protonix] 40 mg PO AC-BID 05/29/17 [History] Simvastatin [Zocor] 10 mg PO HS 05/29/17 [History] amLODIPine BESYLATE [Norvasc] 10 mg PO DAILY 06/01/17 [History] Follow up Appointment(s)/Referral(s): Salome Caba MD [Primary Care Provider] - 1-2 days
--- NOTE | 2017-06-03 08:40 | CDI ---
Last Revision, January 2017 Documentation Clarification Form Date: 05/31/2017 9:12:00 AM Resubmitted 06/03/2017 08:37:00 AM From: Rosalind Caraballo CCS, CCDS Admit Date: 05/29/2017 11:04:00 AM Patient Name: Tyler Klein Visit Number: [id number] Discharge Date: 06/02/2017 ATTENTION: The Clinical Documentation Specialists (CDI) and [facility] Coding Staff appreciate your assistance in clarifying documentation. Please respond to the clarification below the line at the bottom and electronically sign. The CDI & [facility] Coding staff will review the response and follow-up if needed. Please note: Queries are made part of the Legal Health Record. If you have any questions, please contact the author of this message via ITS. Dr. 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 Also diagnosed with Acute on chronic kidney injury. History/Risk Factors: Colon CA with mets to the liver, Hypertension, Hyperlipidemia. Clinical Indicators: Recent paracentesis performed in [place], admit for gd paracentesis. Current BUN/CR/GFR: / .42 / Patients Baseline: BUN/CR/GFR: unknown or not documented. Treatment: IV fluids prior to paracentesis, IV Ms, IV Zofran, Heparin sq Patients medications include: Zocor, Protonix, Levothyroxine Na, Lexapro In order to capture the severity of condition, please clarify if the condition signifies: CKD Stage 1 (GFR > 90) CKD Stage 2 (GFR 60-89) CKD Stage 3 (GFR 30-59) CKD Stage 4 (GFR 15-29) CKD Stage 5 (GFR <15) Other, please specify Unable to determine Please continue to document in your progress notes and discharge summary in order to capture severity of illness and risk of mortality. Include clinical findings that support your diagnosis. MTDD
--- NOTE | 2017-06-07 08:06 | CDI ---
Last Revision, January 2017 Documentation Clarification Form Date: 05/31/2017 9:12:00 AM 3rd Request From: Rosalind VillatoroCaraballoAMIE, CCDS Admit Date: 05/29/2017 11:04:00 AM Patient Name: Tyler Klein Visit Number: [id number] Discharge Date: 06/02/2017 ATTENTION: The Clinical Documentation Specialists (CDI) and [facility] Coding Staff appreciate your assistance in clarifying documentation. Please respond to the clarification below the line at the bottom and electronically sign. The CDI & [facility] Coding staff will review the response and follow-up if needed. Please note: Queries are made part of the Legal Health Record. If you have any questions, please contact the author of this message via ITS. Dr. 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 Also diagnosed with Acute on chronic kidney injury. History/Risk Factors: Colon CA with mets to the liver, Hypertension, Hyperlipidemia. Clinical Indicators: Recent paracentesis performed in [place], admit for gd paracentesis. Current BUN/CR/GFR: .42 Patients Baseline: BUN/CR/GFR: unknown or not documented. Treatment: IV fluids prior to paracentesis, IV Ms, IV Zofran, Heparin sq Patients medications include: Zocor, Protonix, Levothyroxine Na, Lexapro In order to capture the severity of condition, please clarify if the condition signifies: CKD Stage 1 (GFR > 90) CKD Stage 2 (GFR 60-89) CKD Stage 3 (GFR 30-59) CKD Stage 4 (GFR 15-29) CKD Stage 5 (GFR <15) Other, please specify Unable to determine Stage II chronic kidney disease added to discharge summary Please continue to document in your progress notes and discharge summary in order to capture severity of illness and risk of mortality. Include clinical findings that support your diagnosis. MTDD
== END 2017-06-02 14:39 | disposition home or self-care (01) | DRG 436 ==
LOC: EC 09:31 → 5ONC 11:04
PROVIDERS: ADMIT Internal Medicine; ATTEND Internal Medicine
PROC: 0W9G3ZZ Drainage of Peritoneal Cavity, Percutaneous Approach (ICD-10-PCS; principal; 2017-05-30)
PROC: 0W9G3ZZ Drainage of Peritoneal Cavity, Percutaneous Approach (ICD-10-PCS; 2017-06-01)
DX: C78.7 Secondary malignant neoplasm of liver and intrahepatic bile duct (principal); R18.0 Malignant ascites; N17.9 Acute kidney failure, unspecified; E03.9 Hypothyroidism, unspecified; E78.5 Hyperlipidemia, unspecified; K59.00 Constipation, unspecified; I12.9 Hypertensive chronic kidney disease with stage 1 through stage 4 chronic kidney disease, or unspecified chronic kidney disease; N18.2 Chronic kidney disease, stage 2 (mild); Z79.890 Hormone replacement therapy; Z79.899 Other long term (current) drug therapy; Z85.038 Personal history of other malignant neoplasm of large intestine; Z92.3 Personal history of irradiation; Z90.49 Acquired absence of other specified parts of digestive tract; Z82.49 Family history of ischemic heart disease and other diseases of the circulatory system; Z83.2 Family history of diseases of the blood and blood-forming organs and certain disorders involving the immune mechanism
CPT/HCPCS: 36415; 49083; 74018; 76705; 80053; 81001; 82042; 82150; 82378; 83690; 85025; 85610; 85730; 87070; 87075; 87205; 88108; 88305; 88341; 88342; 96374; 96375; 99285

== ENCOUNTER 2017-06-07 07:51 | Day surgery (SDC) | payer MEDICARE ==
[2017-06-07 08:40] LABS: Mean Platelet Volume 8.1; Platelet Count 196 k/uL (150-450)
[2017-06-07 08:45] LABS: INR 1.2 (<1.2); Prothrombin Time 11.5 sec (9.0-12.0)
[2017-06-07 08:49] VITALS: RESP 16; TEMP 97.9
[2017-06-07 10:26] VITALS: BP 146/82; PULSE 70
--- NOTE | 2017-06-07 13:07 | US ---
Therapeutic paracentesis. DATE OF EXAM: 06/07/2017 CLINICAL HISTORY: Ascites The procedure was discussed with the patient. The risks, complications, benefits, and alternatives we re discussed and any questions were answered. Informed consent was obtained. The patient was placed s upine on the ultrasound table and prepped and draped in the usual sterile fashion. All elements of maximal barrier technique were utilized. Under ultrasound guidance, access into the right lower quadrant was obtained, via the paracentesis catheter system and direct ultrasound guidanc e. Approximately 3.6 liters of straw-colored fluid was removed. The patient was stable throughout the pr ocedure and remained stable upon discharge from Department of Radiology. IMPRESSION: Successful therapeutic paracentesis under ultrasound guidance.
== END 2017-06-07 10:05 | disposition home or self-care (01) ==
LOC: RADPROMAIN 07:51
PROVIDERS: ATTEND Internal Medicine
DX: R18.0 Malignant ascites (principal)
CPT/HCPCS: 85049; 85610; 36415; 49083; J1642

== ENCOUNTER 2017-06-14 11:33 | Day surgery (SDC) | payer MEDICARE ==
[2017-06-14 12:08] LABS: Mean Platelet Volume 8.3; Platelet Count 219 k/uL (150-450)
[2017-06-14 12:45] VITALS: RESP 18; TEMP 98.3
[2017-06-14 12:46] LABS: INR 1.2 (<1.2); Prothrombin Time 11.3 sec (9.0-12.0)
[2017-06-14 13:52] VITALS: BP 167/79; PULSE 80
--- NOTE | 2017-06-14 15:02 | US ---
EXAMINATION TYPE: US paracentesis abd w/image DATE OF EXAM: 06/14/2017 COMPARISON: NONE HISTORY: Ascites. PROCEDURE: Maximal barrier technique was utilized. The skin overlying a suitable pocket of fluid was localized with ultrasound and the overlying skin was prepped and draped. Ultrasound was utilized with sterile technique. Lidocaine was used for local anesthesia and a skin oly made with a scalpel. Catheter was advanced under direct ultrasound guidance into a suitable pocket of fluid and approximately 5.5 liter s of serous fluid were removed. Catheter was withdrawn and hemostasis achieved. There is no immedia te complication; the patient is discharged in stable condition. IMPRESSION: STATUS POST ULTRASOUND GUIDED PARACENTESIS FOR PALLIATION OF ASCITES. THIS PROCEDURE WA S PERFORMED BY THE UNDERSIGNED.
== END 2017-06-14 14:10 | disposition home or self-care (01) ==
LOC: RADPROMAIN 11:33
PROVIDERS: ATTEND Internal Medicine
DX: R18.0 Malignant ascites (principal)
CPT/HCPCS: 49083; 82565; 85049; 85610

== ENCOUNTER 2017-06-21 07:40 | Day surgery (SDC) | payer MEDICARE ==
[2017-06-21 08:36] VITALS: RESP 20; TEMP 97.7
[2017-06-21 08:40] LABS: Mean Platelet Volume 7.5; Platelet Count 269 k/uL (150-450)
[2017-06-21 08:46] LABS: INR 1.2 (<1.2); Prothrombin Time 11.2 sec (9.0-12.0)
[2017-06-21 09:53] VITALS: BP 143/78; PULSE 66
--- NOTE | 2017-06-21 11:23 | US ---
Therapeutic paracentesis. DATE OF EXAM: 06/21/2017 CLINICAL HISTORY: Ascites The procedure was discussed with the patient. The risks, complications, benefits, and alternatives we re discussed and any questions were answered. Informed consent was obtained. The patient was placed s upine on the ultrasound table and prepped and draped in the usual sterile fashion. All elements of maximal barrier technique were utilized. Under ultrasound guidance, access into the left lower quadrant was obtained, via the paracentesis catheter system and direct ultrasound guidance . Approximately 4.9 liters of straw-colored fluid was removed. The patient was stable throughout the pr ocedure and remained stable upon discharge from Department of Radiology. IMPRESSION: Successful therapeutic paracentesis under ultrasound guidance.
== END 2017-06-21 10:10 | disposition home or self-care (01) ==
LOC: RADPROMAIN 07:40
PROVIDERS: ATTEND Internal Medicine
DX: R18.0 Malignant ascites (principal)
CPT/HCPCS: 49083; 85049; 85610

== ENCOUNTER 2017-06-28 07:45 | Day surgery (SDC) | payer MEDICARE ==
[2017-06-28 08:30] LABS: Mean Platelet Volume 7.2; Platelet Count 230 k/uL (150-450)
[2017-06-28 09:06] LABS: INR 1.2 (<1.2); Prothrombin Time 11.4 sec (9.0-12.0)
[2017-06-28 09:08] VITALS: TEMP 97.9
[2017-06-28] MEDS ORDERED: LIDOCAINE 1% (PF) 10 MG/ML (30 ML SDV) SQ STA (09:26)
[2017-06-28 09:34] VITALS: RESP 16
[2017-06-28 10:36] VITALS: BP 164/89; PULSE 68
--- NOTE | 2017-06-28 11:53 | US ---
EXAMINATION TYPE: US paracentesis abd w/image DATE OF EXAM: 06/28/2017 COMPARISON: NONE HISTORY: Ascites. PROCEDURE: Maximal barrier technique was utilized. The skin overlying a suitable pocket of fluid was localized with ultrasound and the overlying skin was prepped and draped. Ultrasound was utilized with sterile technique. Lidocaine was used for local anesthesia and a skin oly made with a scalpel. Catheter was advanced under direct ultrasound guidance into a suitable pocket of fluid and approximately 5.7 liter s of serous fluid were removed. Catheter was withdrawn and hemostasis achieved. There is no immedia te complication; the patient is discharged in stable condition. IMPRESSION: STATUS POST ULTRASOUND GUIDED PARACENTESIS FOR PALLIATION OF ASCITES. THIS PROCEDURE WA S PERFORMED BY THE UNDERSIGNED.
== END 2017-06-28 10:30 | disposition home or self-care (01) ==
LOC: RADPROMAIN 07:45
PROVIDERS: ATTEND Internal Medicine Hematology & Oncology
DX: R18.0 Malignant ascites (principal)
CPT/HCPCS: 82565; 85049; 85610; 49083; J2001; 85730

== ENCOUNTER 2017-07-05 07:51 | Day surgery (SDC) | payer MEDICARE ==
[2017-07-05 08:28] VITALS: TEMP 97.9
[2017-07-05 08:40] LABS: Mean Platelet Volume 7.5; Platelet Count 238 k/uL (150-450)
[2017-07-05] MEDS ORDERED: LIDOCAINE 1% INJ 10MG/ML (20 ML MDV) SQ ONE (09:18)
[2017-07-05 09:58] LABS: INR 1.1 (<1.2); Partial Thromboplastin Time 24.4 sec (22.0-30.0); Prothrombin Time 11.1 sec (9.0-12.0)
[2017-07-05 10:32] VITALS: RESP 14
[2017-07-05 11:04] VITALS: BP 154/77; PULSE 63
--- NOTE | 2017-07-05 13:19 | US ---
EXAMINATION TYPE: US paracentesis abd w/image DATE OF EXAM: 07/05/2017 COMPARISON: NONE HISTORY: Ascites. PROCEDURE: Maximal barrier technique was utilized. The skin overlying a suitable pocket of fluid was localized with ultrasound and the overlying skin was prepped and draped. Ultrasound was utilized with sterile technique. Lidocaine was used for local anesthesia and a skin oly made with a scalpel. Catheter was advanced under direct ultrasound guidance into a suitable pocket of fluid and approximately 4.8 liter s of serous fluid were removed. Catheter was withdrawn and hemostasis achieved. There is no immedia te complication; the patient is discharged in stable condition. IMPRESSION: STATUS POST ULTRASOUND GUIDED PARACENTESIS FOR PALLIATION OF ASCITES. THIS PROCEDURE WA S PERFORMED BY THE UNDERSIGNED.
== END 2017-07-05 11:15 | disposition home or self-care (01) ==
LOC: RADPROMAIN 07:51
PROVIDERS: ATTEND Internal Medicine Hematology & Oncology
DX: R18.0 Malignant ascites (principal)
CPT/HCPCS: 85049; 85610; 85730; 49083; J2001; J1642

== ENCOUNTER 2017-07-12 08:46 | Day surgery (SDC) | payer MEDICARE ==
[2017-07-12 09:26] LABS: Mean Platelet Volume 7.1; Platelet Count 258 k/uL (150-450)
[2017-07-12 09:35] LABS: INR 1.2 (<1.2); Prothrombin Time 11.5 sec (9.0-12.0)
[2017-07-12 09:46] VITALS: RESP 16; TEMP 98
[2017-07-12] MEDS ORDERED: LIDOCAINE 1% INJ 10MG/ML (20 ML MDV) SQ ONE (10:29)
[2017-07-12 11:56] VITALS: BP 149/73; PULSE 70
--- NOTE | 2017-07-12 14:17 | US ---
EXAMINATION TYPE: US paracentesis abd w/image DATE OF EXAM: 07/12/2017 COMPARISON: NONE HISTORY: Ascites. PROCEDURE: Maximal barrier technique was utilized. The skin overlying a suitable pocket of fluid was localized with ultrasound and the overlying skin was prepped and draped. Ultrasound was utilized with sterile technique. Lidocaine was used for local anesthesia and a skin oly made with a scalpel. Catheter was advanced under direct ultrasound guidance into a suitable pocket of fluid and approximately 6 liters of serous fluid were removed. Catheter was withdrawn and hemostasis achieved. There is no immediate complication; the patient is discharged in stable condition. IMPRESSION: STATUS POST ULTRASOUND GUIDED PARACENTESIS FOR PALLIATION OF ASCITES. THIS PROCEDURE WA S PERFORMED BY THE UNDERSIGNED.
== END 2017-07-12 11:30 | disposition home or self-care (01) ==
LOC: RADPROMAIN 08:46
PROVIDERS: ATTEND Internal Medicine Hematology & Oncology
DX: R18.0 Malignant ascites (principal)
CPT/HCPCS: 85049; 85610; 49083; J2001; J1642

== ENCOUNTER 2017-07-19 07:42 | Day surgery (SDC) | payer MEDICARE ==
[2017-07-19 08:37] LABS: Mean Platelet Volume 7.3; Platelet Count 219 k/uL (150-450)
[2017-07-19 08:41] LABS: INR 1.2 (<1.2); Prothrombin Time 11.3 sec (9.0-12.0)
[2017-07-19 08:46] VITALS: TEMP 97.6
[2017-07-19] MEDS ORDERED: LIDOCAINE 1% INJ 10MG/ML (20 ML MDV) SQ ONE (09:05)
[2017-07-19] MEDS ORDERED: MORPHINE SULFATE 2 MG/ML SYRINGE IVP STA (09:59)
[2017-07-19] MEDS ORDERED: MORPHINE SULFATE 4 MG/ML SYRINGE IVP STA (10:04)
--- NOTE | 2017-07-19 10:11 | US ---
Therapeutic paracentesis. DATE OF EXAM: 07/19/2017 CLINICAL HISTORY: Ascites The procedure was discussed with the patient. The risks, complications, benefits, and alternatives we re discussed and any questions were answered. Informed consent was obtained. The patient was placed s upine on the ultrasound table and prepped and draped in the usual sterile fashion. All elements of maximal barrier technique were utilized. Under ultrasound guidance, access into the left lower quadrant was obtained, via the paracentesis catheter system and direct ultrasound guidance . Approximately 5.3 liters of straw-colored fluid was removed. The patient was stable throughout the pr ocedure and remained stable upon discharge from Department of Radiology. IMPRESSION: Successful therapeutic paracentesis under ultrasound guidance.
[2017-07-19 10:17] VITALS: RESP 18
[2017-07-19 10:19] VITALS: BP 160/78; PULSE 70
== END 2017-07-19 10:45 | disposition home or self-care (01) ==
LOC: RADPROMAIN 07:42
PROVIDERS: ATTEND Internal Medicine Hematology & Oncology
DX: R18.0 Malignant ascites (principal)
CPT/HCPCS: 85049; 85610; 49083; J2270; J2001

== ENCOUNTER 2017-07-26 11:44 | Day surgery (SDC) | payer MEDICARE ==
[2017-07-26 12:30] VITALS: RESP 16; TEMP 97.8
[2017-07-26 12:36] LABS: Mean Platelet Volume 7.5; Platelet Count 146 k/uL (150-450)
[2017-07-26 12:37] LABS: INR 1.2 (<1.2); Prothrombin Time 11.3 sec (9.0-12.0)
[2017-07-26 14:05] VITALS: BP 139/75; PULSE 66
--- NOTE | 2017-07-26 16:13 | US ---
EXAMINATION TYPE: US paracentesis abd w/image DATE OF EXAM: 07/26/2017 COMPARISON: NONE HISTORY: Ascites. PROCEDURE: Maximal barrier technique was utilized. The skin overlying a suitable pocket of fluid was localized with ultrasound and the overlying skin was prepped and draped. Ultrasound was utilized with sterile technique. Lidocaine was used for local anesthesia and a skin oly made with a scalpel. Catheter was advanced under direct ultrasound guidance into a suitable pocket of fluid and approximately 5.3 liter s of serous fluid were removed. Catheter was withdrawn and hemostasis achieved. There is no immedia te complication; the patient is discharged in stable condition. IMPRESSION: STATUS POST ULTRASOUND GUIDED PARACENTESIS FOR PALLIATION OF ASCITES. THIS PROCEDURE WA S PERFORMED BY THE UNDERSIGNED.
== END 2017-07-26 14:20 | disposition home or self-care (01) ==
LOC: RADPROMAIN 11:44
PROVIDERS: ATTEND Internal Medicine Hematology & Oncology
DX: R18.0 Malignant ascites (principal)
CPT/HCPCS: 85049; 85610; 49083; J1642

== ENCOUNTER 2017-08-02 11:41 | Day surgery (SDC) | payer MEDICARE ==
[2017-08-02 12:03] VITALS: BP 152/74; PULSE 78; RESP 20; TEMP 97.7
--- NOTE | 2017-08-02 12:19 | US ---
Therapeutic paracentesis. DATE OF EXAM: 08/02/2017 CLINICAL HISTORY: Ascites Preliminary imaging demonstrated only a small amount of fluid and the patient wished to defer the pro cedure. IMPRESSION: Discontinued paracentesis.
== END 2017-08-02 12:15 | disposition home or self-care (01) ==
LOC: RADPROMAIN 11:41
PROVIDERS: ATTEND Internal Medicine Hematology & Oncology
DX: R18.8 Other ascites (principal); Z53.29 Procedure and treatment not carried out because of patient's decision for other reasons
CPT/HCPCS: 76705

== ENCOUNTER 2017-08-09 11:30 | Day surgery (SDC) | payer MEDICARE ==
[2017-08-09 12:14] VITALS: RESP 20; TEMP 98.1
[2017-08-09] MEDS ORDERED: LIDOCAINE 1% INJ 10MG/ML (20 ML MDV) SQ ONE (12:17)
[2017-08-09 12:19] LABS: Mean Platelet Volume 7.4; Platelet Count 237 k/uL (150-450)
[2017-08-09 12:26] LABS: INR 1.2 (<1.2); Prothrombin Time 11.5 sec (9.0-12.0)
[2017-08-09] MEDS: ALBUMIN HUMAN 25% 50 ML in EMPTY BAG 1 BAG IVPB SCH (13:33)
[2017-08-09 14:18] VITALS: BP 145/72; PULSE 71
--- NOTE | 2017-08-09 14:57 | US ---
EXAMINATION TYPE: US paracentesis abd w/image DATE OF EXAM: 08/09/2017 COMPARISON: NONE HISTORY: Ascites. PROCEDURE: Maximal barrier technique was utilized. The skin overlying a suitable pocket of fluid was localized with ultrasound and the overlying skin was prepped and draped. Ultrasound was utilized with sterile technique. Lidocaine was used for local anesthesia and a skin oly made with a scalpel. Catheter was advanced under direct ultrasound guidance into a suitable pocket of fluid and approximately 5 liters of serous fluid were removed. Catheter was withdrawn and hemostasis achieved. There is no immediate complication; the patient is discharged in stable condition. IMPRESSION: STATUS POST ULTRASOUND GUIDED PARACENTESIS FOR PALLIATION OF ASCITES. THIS PROCEDURE WA S PERFORMED BY THE UNDERSIGNED.
== END 2017-08-09 14:30 | disposition home or self-care (01) ==
LOC: RADPROMAIN 11:30
PROVIDERS: ATTEND Internal Medicine Hematology & Oncology
DX: R18.0 Malignant ascites (principal)
CPT/HCPCS: 82565; 85049; 85610; 96365; 36415; 49083; J2001; J1642

== ENCOUNTER 2017-08-16 11:59 | Day surgery (SDC) | payer MEDICARE ==
[2017-08-16 12:40] VITALS: RESP 16; TEMP 97.6
[2017-08-16 12:43] LABS: Mean Platelet Volume 7.1; Platelet Count 210 k/uL (150-450)
[2017-08-16 12:55] LABS: INR 1.1 (<1.2); Prothrombin Time 10.8 sec (9.0-12.0)
[2017-08-16 14:08] VITALS: PULSE 66
[2017-08-16] MEDS ORDERED: LIDOCAINE 1% INJ 10MG/ML (20 ML MDV) SQ ONE (14:10)
[2017-08-16 15:24] VITALS: BP 154/74
--- NOTE | 2017-08-16 16:14 | US ---
EXAMINATION TYPE: US paracentesis abd w/image DATE OF EXAM: 08/16/2017 COMPARISON: NONE HISTORY: Ascites. PROCEDURE: Maximal barrier technique was utilized. The skin overlying a suitable pocket of fluid was localized with ultrasound and the overlying skin was prepped and draped. Ultrasound was utilized with sterile technique. Lidocaine was used for local anesthesia and a skin oly made with a scalpel. Catheter was advanced under direct ultrasound guidance into a suitable pocket of fluid and approximately 6.8 liter s of serous fluid were removed. Catheter was withdrawn and hemostasis achieved. There is no immedia te complication; the patient is discharged in stable condition. IMPRESSION: STATUS POST ULTRASOUND GUIDED PARACENTESIS FOR PALLIATION OF ASCITES. THIS PROCEDURE WA S PERFORMED BY THE UNDERSIGNED.
== END 2017-08-16 14:35 | disposition home or self-care (01) ==
LOC: RADPROMAIN 11:59
PROVIDERS: ATTEND Internal Medicine Hematology & Oncology
DX: R18.0 Malignant ascites (principal)
CPT/HCPCS: 85049; 85610; 49083; J2001; J1642

== ENCOUNTER 2017-08-23 11:40 | Day surgery (SDC) | payer MEDICARE ==
[2017-08-23 12:19] LABS: Mean Platelet Volume 7.9; Platelet Count 107 k/uL (150-450)
[2017-08-23 12:24] LABS: INR 1.2 (<1.2); Prothrombin Time 11.3 sec (9.0-12.0)
[2017-08-23 12:49] VITALS: RESP 18; TEMP 97.7
[2017-08-23 13:46] VITALS: PULSE 80
--- NOTE | 2017-08-23 14:34 | US ---
EXAMINATION TYPE: US paracentesis abd w/image DATE OF EXAM: 08/23/2017 COMPARISON: NONE HISTORY: Ascites. PROCEDURE: Maximal barrier technique was utilized. The skin overlying a suitable pocket of fluid was localized with ultrasound and the overlying skin was prepped and draped. Ultrasound was utilized with sterile technique. Lidocaine was used for local anesthesia and a skin oly made with a scalpel. Catheter was advanced under direct ultrasound guidance into a suitable pocket of fluid and approximately 4.8 liter s of serous fluid were removed. Catheter was withdrawn and hemostasis achieved. There is no immedia te complication; the patient is discharged in stable condition. IMPRESSION: STATUS POST ULTRASOUND GUIDED PARACENTESIS FOR PALLIATION OF ASCITES. THIS PROCEDURE WA S PERFORMED BY THE UNDERSIGNED.
[2017-08-23 15:08] VITALS: BP 124/70
== END 2017-08-23 14:50 | disposition home or self-care (01) ==
LOC: RADPROMAIN 11:40
PROVIDERS: ATTEND Internal Medicine Hematology & Oncology
DX: R18.0 Malignant ascites (principal)
CPT/HCPCS: 49083; 85049; 85610

== ENCOUNTER 2017-08-26 12:02 | Day surgery (SDC) | payer MEDICARE ==
--- NOTE | 2017-08-26 16:15 | US ---
Discontinued paracentesis HISTORY: Ascites Moderate ascites is present. Patient defers paracentesis at this time.
== END 2017-08-26 12:45 | disposition home or self-care (01) ==
LOC: RADPROMAIN 12:02
PROVIDERS: ATTEND Internal Medicine Hematology & Oncology
DX: R18.0 Malignant ascites (principal); Z53.29 Procedure and treatment not carried out because of patient's decision for other reasons
CPT/HCPCS: 76705

== ENCOUNTER 2017-08-30 11:57 | Day surgery (SDC) | payer MEDICARE ==
[2017-08-30 12:28] VITALS: TEMP 97.6
[2017-08-30 12:31] LABS: Mean Platelet Volume 8.4; Platelet Count 148 k/uL (150-450)
[2017-08-30 12:36] LABS: INR 1.1 (<1.2); Prothrombin Time 10.7 sec (9.0-12.0)
[2017-08-30 13:58] VITALS: BP 140/58; PULSE 73; RESP 18
--- NOTE | 2017-08-30 16:01 | US ---
EXAMINATION TYPE: US paracentesis abd w/image DATE OF EXAM: 08/30/2017 COMPARISON: NONE HISTORY: Ascites. PROCEDURE: Maximal barrier technique was utilized. The skin overlying a suitable pocket of fluid was localized with ultrasound and the overlying skin was prepped and draped. Ultrasound was utilized with sterile technique. Lidocaine was used for local anesthesia and a skin oly made with a scalpel. Catheter was advanced under direct ultrasound guidance into a suitable pocket of fluid and approximately 6 liters of serous fluid were removed. Catheter was withdrawn and hemostasis achieved. There is no immediate complication; the patient is discharged in stable condition. IMPRESSION: STATUS POST ULTRASOUND GUIDED PARACENTESIS FOR PALLIATION OF ASCITES. THIS PROCEDURE WA S PERFORMED BY THE UNDERSIGNED.
== END 2017-08-30 14:12 | disposition home or self-care (01) ==
LOC: RADPROMAIN 11:57
PROVIDERS: ATTEND Internal Medicine Hematology & Oncology
DX: R18.0 Malignant ascites (principal)
CPT/HCPCS: 49083; 85049; 85610

== ENCOUNTER 2017-09-06 11:49 | Day surgery (SDC) | payer MEDICARE ==
[2017-09-06 12:36] LABS: Mean Platelet Volume 7.8; Platelet Count 257 k/uL (150-450)
[2017-09-06 12:40] VITALS: RESP 16; TEMP 98.1
[2017-09-06 12:43] LABS: INR 1.1 (<1.2); Prothrombin Time 10.6 sec (9.0-12.0)
--- NOTE | 2017-09-06 14:28 | US ---
Therapeutic paracentesis. DATE OF EXAM: 09/06/2017 CLINICAL HISTORY: Ascites The procedure was discussed with the patient. The risks, complications, benefits, and alternatives we re discussed and any questions were answered. Informed consent was obtained. The patient was placed s upine on the ultrasound table and prepped and draped in the usual sterile fashion. All elements of maximal barrier technique were utilized. Under ultrasound guidance, access into the right lower quadrant was obtained, via the paracentesis catheter system and direct ultrasound guidanc e. Approximately 5.7 liters of straw-colored fluid was removed. The patient was stable throughout the pr ocedure and remained stable upon discharge from Department of Radiology. IMPRESSION: Successful therapeutic paracentesis under ultrasound guidance.
[2017-09-06 14:52] VITALS: PULSE 76
[2017-09-06 14:55] VITALS: BP 139/65
== END 2017-09-06 14:40 | disposition home or self-care (01) ==
LOC: RADPROMAIN 11:49
PROVIDERS: ATTEND Internal Medicine Hematology & Oncology
DX: R18.8 Other ascites (principal)
CPT/HCPCS: 49083; 85049; 85610

== ENCOUNTER 2017-09-10 22:14 | Emergency (ER) | payer MEDICARE ==
[2017-09-10 22:20] VITALS: RESP 18
--- NOTE | 2017-09-10 22:51 | ED ---
Weakness HPI - General Chief complaint: Weakness Stated complaint: Unsteady gait Time Seen by Provider: 09/10/17 22:26 Source: patient Mode of arrival: wheelchair Limitations: no limitations - History of Present Illness Initial comments: This patient is an 82-year-old man with history of metastatic colon cancer, who presents with complaint of worsening of generalized weakness. The patient states that for the past 1-2 weeks she has been having generalized weakness and fatigue. The patient did have a paracentesis earlier this week and since that time has been getting more weak. Today he was not able to walk unsupported. The patient is denying any focality of the weakness. History is from both the patient and family, and they state that the last time that he felt this week his hemoglobin was down to 5. The patient is denying any current symptoms of infection. No fever or chills. No sinus symptoms or sore throat. No cough or dyspnea. No vomiting or diarrhea. No change in urination. No rash. No chest or abdominal pain. MD Complaint: generalized weakness, lack of energy, difficulty walking -: week(s) Location: generalized Consistency: constant Improves with: none Worsens with: exertion Context: history of similar Associated Symptoms: denies other symptoms - Related Data Home Medications Medication Instructions Recorded Confirmed Levothyroxine Sodium 150 mcg PO DAILY 05/29/17 09/06/17 Pantoprazole Sodium [Protonix] 40 mg PO AC-BID 05/29/17 09/06/17 Simvastatin [Zocor] 10 mg PO HS 05/29/17 09/06/17 amLODIPine BESYLATE [Norvasc] 10 mg PO DAILY 06/01/17 09/06/17 traMADol HCL [Ultram] 50 mg PO Q6HR PRN 06/21/17 09/06/17 Furosemide [Lasix] 20 mg PO DAILY 08/23/17 09/06/17 Previous Rx's Medication Instructions Recorded Sennosides-Docusate Sodium 1 each PO DAILY PRN #30 tab 06/02/17 [Senokot-S] Allergies Allergy/AdvReac Type Severity Reaction Status Date / Time No Known Allergies Allergy Verified 09/10/17 22:20 Review of Systems ROS Statement: Those systems with pertinent positive or pertinent negative responses have been documented in the HPI. ROS Other: All systems not noted in ROS Statement are negative. Constitutional: Reports: weakness (Generalized). Denies: fever, chills ENT: Denies: throat pain, congestion Respiratory: Denies: cough, dyspnea Cardiovascular: Denies: chest pain, palpitations, edema Gastrointestinal: Denies: abdominal pain, nausea, vomiting Genitourinary: Denies: dysuria Musculoskeletal: Denies: back pain Skin: Denies: rash Neurological: Denies: headache, weakness, numbness, paresthesias Past Medical History Past Medical History: Cancer, Hyperlipidemia, Hypertension Additional Past Medical History / Comment(s): COLON CANCER WITH METASTASIS TO LIVER. LAST CHEMO 3 weeks ago. History of Any Multi-Drug Resistant Organisms: None Reported Additional Past Surgical History / Comment(s): LIVER SURGERY AND COLON RESECTION Past Anesthesia/Blood Transfusion Reactions: No Reported Reaction Past Psychological History: No Psychological Hx Reported Smoking Status: Never smoker Past Alcohol Use History: Occasional Past Drug Use History: None Reported - Past Family History Mother Family Medical History: Myocardial Infarction (MT) Father Family Medical History: CVA/TIA Brother(s) Family Medical History: Coronary Artery Disease (CAD), Deep Vein Thrombosis (DVT ), GI Bleed Additional Family Medical History / Comment(s): xaralto stopped 04/18/17 due to GI bleed General Exam Limitations: no limitations General appearance: alert, in no apparent distress, cachectic Head exam: Present: atraumatic, normocephalic Eye exam: Present: normal appearance. Absent: scleral icterus, conjunctival injection ENT exam: Present: mucous membranes dry Respiratory exam: Present: normal lung sounds bilaterally. Absent: respiratory distress, wheezes, rales, rhonchi, stridor Cardiovascular Exam: Present: regular rate, normal rhythm, normal heart sounds. Absent: systolic murmur, diastolic murmur, rubs, gallop GI/Abdominal exam: Present: soft, other (There is mild to moderate amount of ascites. No tenderness. No indication of peritonitis.). Absent: distended, tenderness, guarding, rebound, mass Extremities exam: Present: normal inspection, normal capillary refill. Absent: pedal edema, joint swelling, calf tenderness Back exam: Present: normal inspection. Absent: CVA tenderness (R), CVA tenderness (L) Neurological exam: Present: alert. Absent: motor sensory deficit Skin exam: Present: warm, dry, intact, normal color. Absent: rash Course Vital Signs 09/10/17 22:17 Temperature 98.0 F Pulse Rate 64 Respiratory 18 Rate Blood Pressure 125/71 O2 Sat by Pulse 100 Oximetry EKG Findings - EKG Results: EKG: interpreted by CELIA MARIE, sinus rhythm (Rate 61 bpm), normal axis, normal QRS, normal ST/T, no acute changes - MT, Pacemaker, Normal: Normal tracing: normal tracing Medical Decision Making - Medical Decision Making Patient is an 82-year-old man presenting for generalized weakness and fatigue. The labs today and comparison with his previous do show increase in BUN and creatinine. Discussed this with patient and family and discussed treatment alternatives. The patient is adamant that he wants to go home and will not stay in the hospital overnight. At this point he also does not want to take any IV fluids, and states that he would agree to hold Lasix for tomorrow and will speak with Dr. Hidalgo, for further recommendations. He does agree to return here should there be any change. - Lab Data Result diagrams: 09/10/17 22:45 09/10/17 22:45 Lab Results 09/10/17 09/10/17 09/10/17 Range/Units 22:45 22:45 22:45 WBC 2.6 L (3.8-10.6) k/uL RBC 3.17 L (4.30-5.90) m/uL Hgb 10.8 L (13.0-17.5) gm/dL Hct 33.8 L (39.0-53.0) % MCV 106.5 H (80.0-100.0) fL MCH 34.2 (25.0-35.0) pg MCHC 32.1 (31.0-37.0) g/dL RDW 24.6 H (11.5-15.5) % Plt Count 285 (150-450) k/uL Neutrophils % (Manual) 56 % Band Neutrophils % 3 % Lymphocytes % (Manual) 18 % Monocytes % (Manual) 22 % Eosinophils % (Manual) 1 % Neutrophils # (Manual) 1.50 (1.3-7.7) k/uL Lymphocytes # (Manual) 0.47 L (1.0-4.8) k/uL Monocytes # (Manual) 0.57 (0-1.0) k/uL Eosinophils # (Manual) 0.03 (0-0.7) k/uL Nucleated RBCs 0 (0-0) /100 WBC Manual Slide Review Performed Large Platelets Present Polychromasia Present Anisocytosis Marked Macrocytosis Marked Target Cells Present PT (9.0-12.0) sec INR (<1.2) APTT (22.0-30.0) sec Sodium 134 L (137-145) mmol/L Potassium 4.7 (3.5-5.1) mmol/L Chloride 108 H (98-107) mmol/L Carbon Dioxide 18 L (22-30) mmol/L Anion Gap 8 mmol/L BUN 63 H (9-20) mg/dL Creatinine 2.00 H (0.66-1.25) mg/dL Est GFR (CKD-EPI)AfAm 35 (>60 ml/min/1.73 sqM) Est GFR (CKD-EPI)NonAf 30 (>60 ml/min/1.73 sqM) Glucose 117 H (74-99) mg/dL Plasma Lactic Acid Adam (0.7-2.0) mmol/L Calcium 8.6 (8.4-10.2) mg/dL Magnesium 2.1 (1.6-2.3) mg/dL Total Bilirubin 0.2 (0.2-1.3) mg/dL AST 42 (17-59) U/L ALT 55 (21-72) U/L Alkaline Phosphatase 278 H (38-126) U/L Ammonia (<30) umol/L Total Creatine Kinase 37 L (55-170) U/L CK-MB (CK-2) 2.5 H* (0.0-2.4) ng/mL CK-MB (CK-2) Rel Index 6.8 Troponin I 0.021 (0.000-0.034) ng/mL Total Protein 4.8 L (6.3-8.2) g/dL Albumin 2.5 L (3.5-5.0) g/dL Urine Color Urine Appearance (Clear) Urine pH (5.0-8.0) Ur Specific [place] (1.001-1.035) Urine Protein (Negative) Urine Glucose (UA) (Negative) Urine Ketones (Negative) Urine Blood (Negative) Urine Nitrite (Negative) Urine Bilirubin (Negative) Urine Urobilinogen (<2.0) mg/dL Ur Leukocyte Esterase (Negative) 09/10/17 09/10/17 09/10/17 Range/Units 22:45 22:45 23:35 WBC (3.8-10.6) k/uL RBC (4.30-5.90) m/uL Hgb (13.0-17.5) gm/dL Hct (39.0-53.0) % MCV (80.0-100.0) fL MCH (25.0-35.0) pg MCHC (31.0-37.0) g/dL RDW (11.5-15.5) % Plt Count (150-450) k/uL Neutrophils % (Manual) % Band Neutrophils % % Lymphocytes % (Manual) % Monocytes % (Manual) % Eosinophils % (Manual) % Neutrophils # (Manual) (1.3-7.7) k/uL Lymphocytes # (Manual) (1.0-4.8) k/uL Monocytes # (Manual) (0-1.0) k/uL Eosinophils # (Manual) (0-0.7) k/uL Nucleated RBCs (0-0) /100 WBC Manual Slide Review Large Platelets Polychromasia Anisocytosis Macrocytosis Target Cells PT 10.3 (9.0-12.0) sec INR 1.1 (<1.2) APTT 23.6 (22.0-30.0) sec Sodium (137-145) mmol/L Potassium (3.5-5.1) mmol/L Chloride (98-107) mmol/L Carbon Dioxide (22-30) mmol/L Anion Gap mmol/L BUN (9-20) mg/dL Creatinine (0.66-1.25) mg/dL Est GFR (CKD-EPI)AfAm (>60 ml/min/1.73 sqM) Est GFR (CKD-EPI)NonAf (>60 ml/min/1.73 sqM) Glucose (74-99) mg/dL Plasma Lactic Acid Adam 1.1 (0.7-2.0) mmol/L Calcium (8.4-10.2) mg/dL Magnesium (1.6-2.3) mg/dL Total Bilirubin (0.2-1.3) mg/dL AST (17-59) U/L ALT (21-72) U/L Alkaline Phosphatase (38-126) U/L Ammonia 13 (<30) umol/L Total Creatine Kinase (55-170) U/L CK-MB (CK-2) (0.0-2.4) ng/mL CK-MB (CK-2) Rel Index Troponin I (0.000-0.034) ng/mL Total Protein (6.3-8.2) g/dL Albumin (3.5-5.0) g/dL Urine Color Yellow Urine Appearance Clear (Clear) Urine pH 5.0 (5.0-8.0) Ur Specific [place] 1.010 (1.001-1.035) Urine Protein Negative (Negative) Urine Glucose (UA) Negative (Negative) Urine Ketones Negative (Negative) Urine Blood Negative (Negative) Urine Nitrite Negative (Negative) Urine Bilirubin Negative (Negative) Urine Urobilinogen <2.0 (<2.0) mg/dL Ur Leukocyte Esterase Negative (Negative) Disposition Clinical Impression: Dehydration, Weakness Disposition: HOME SELF-CARE Condition: Poor Is patient prescribed a controlled substance at d/c from ED?: No Referrals: Salome Caba MD [Primary Care Provider] - 1-2 days Tu Hidalgo MD [STAFF PHYSICIAN] - 1-2 days
[2017-09-10 23:07] LABS: Anisocytosis Marked; HCT 33.8 % (39.0-53.0); HGB 10.8 gm/dL (13.0-17.5); MCH 34.2 pg (25.0-35.0); MCHC 32.1 g/dL (31.0-37.0); MCV 106.5 fL (80.0-100.0); Macrocytosis Marked; Mean Platelet Volume 7.5; Platelet Count 285 k/uL (150-450); RBC 3.17 m/uL (4.30-5.90); RDW 24.6 % (11.5-15.5); WBC 2.6 k/uL (3.8-10.6)
[2017-09-10 23:16] LABS: Lactic Acid, Venous 1.1 mmol/L (0.7-2.0)
[2017-09-10 23:17] LABS: INR 1.1 (<1.2); Partial Thromboplastin Time 23.6 sec (22.0-30.0); Prothrombin Time 10.3 sec (9.0-12.0)
[2017-09-10 23:18] LABS: Albumin 2.5 g/dL (3.5-5.0); Calcium 8.6 mg/dL (8.4-10.2); Magnesium 2.1 mg/dL (1.6-2.3); Potassium 4.7 mmol/L (3.5-5.1); Total Bilirubin 0.2 mg/dL (0.2-1.3); Total Protein 4.8 g/dL (6.3-8.2)
[2017-09-10 23:41] LABS: Appearance,Urine Clear (Clear); Bilirubin,Urine Negative (Negative); Blood,Urine Negative (Negative); Color,Urine Yellow; Glucose,Urine (UA) Negative (Negative); Ketones,Urine Negative (Negative); Leukocyte Esterase,Urine Negative (Negative); Nitrite,Urine Negative (Negative); Protein,Urine Negative (Negative); Urobilinogen,Urine <2.0 mg/dL (<2.0)
[2017-09-10 23:41] LABS: Troponin I 0.021 ng/mL (0.000-0.034)
[2017-09-10 23:48] LABS: Creatine Kinase MB 2.5 ng/mL (0.0-2.4)
--- NOTE | 2017-09-10 23:50 | XR ---
EXAMINATION TYPE: XR chest 1V portable DATE OF EXAM: 09/10/2017 COMPARISON: NONE HISTORY: Weakness TECHNIQUE: Single frontal view of the chest is obtained. FINDINGS: Heart and mediastinum are within normal limits. Lungs are clear. There is right central ve nous catheter with tip in the superior vena cava. There are chest leads. Costophrenic angles are cesar r. IMPRESSION: No active cardiopulmonary disease. Normal heart.
[2017-09-10 23:52] LABS: Band Neutrophils % 3 %; Eosinophils # (M) 0.03 k/uL (0-0.7); Lymphocytes # (M) 0.47 k/uL (1.0-4.8); Monocytes # (M) 0.57 k/uL (0-1.0); Neutrophils % (M) 56 %; Nucleated Red Blood Cells 0 /100 WBC (0-0); Total Cells Counted 100
[2017-09-10 23:53] LABS: Target Cells Present
[2017-09-10 23:54] LABS: Polychromasia Present
[2017-09-10 23:55] LABS: Large Platelets Present
[2017-09-11 01:10] VITALS: BP 127/67; PULSE 65; TEMP 98.3
== END 2017-09-11 01:10 | disposition home or self-care (01) ==
LOC: EC 22:14
DX: E86.0 Dehydration (principal); R53.1 Weakness; E78.5 Hyperlipidemia, unspecified; I10 Essential (primary) hypertension; Z85.038 Personal history of other malignant neoplasm of large intestine; Z85.05 Personal history of malignant neoplasm of liver; Z92.21 Personal history of antineoplastic chemotherapy; Z79.899 Other long term (current) drug therapy
CPT/HCPCS: 36415; 71045; 80053; 81003; 82140; 82550; 82553; 83605; 83735; 84484; 85025; 85610; 85730; 93005; 99285

== ENCOUNTER 2017-09-13 11:41 | Day surgery (SDC) | payer MEDICARE ==
[2017-09-13 12:59] LABS: Mean Platelet Volume 7.3; Platelet Count 300 k/uL (150-450)
[2017-09-13 13:08] LABS: INR 1.2 (<1.2); Prothrombin Time 11.1 sec (9.0-12.0)
[2017-09-13 13:13] VITALS: RESP 16
[2017-09-13] MEDS ORDERED: LIDOCAINE 1% INJ 10MG/ML (20 ML MDV) SQ STA (13:40)
[2017-09-13 14:51] VITALS: BP 131/73; PULSE 65
--- NOTE | 2017-09-13 15:21 | US ---
Therapeutic paracentesis. DATE OF EXAM: 09/13/2017 CLINICAL HISTORY: Ascites The procedure was discussed with the patient. The risks, complications, benefits, and alternatives we re discussed and any questions were answered. Informed consent was obtained. The patient was placed s upine on the ultrasound table and prepped and draped in the usual sterile fashion. All elements of maximal barrier technique were utilized. Under ultrasound guidance, access into the left lower quadrant was obtained, via the paracentesis catheter system and direct ultrasound guidance . Approximately 5.5 liters of straw-colored fluid was removed. The patient was stable throughout the pr ocedure and remained stable upon discharge from Department of Radiology. IMPRESSION: Successful therapeutic paracentesis under ultrasound guidance.
== END 2017-09-13 14:45 | disposition home or self-care (01) ==
LOC: RADPROMAIN 11:41
PROVIDERS: ATTEND Internal Medicine Hematology & Oncology
DX: R18.0 Malignant ascites (principal)
CPT/HCPCS: 85049; 85610; 49083; J2001

== ENCOUNTER 2017-09-20 07:40 | Day surgery (SDC) | payer MEDICARE ==
[2017-09-20 08:22] VITALS: TEMP 98.1
[2017-09-20 08:26] LABS: Mean Platelet Volume 7.3; Platelet Count 304 k/uL (150-450)
[2017-09-20 08:35] LABS: INR 1.1 (<1.2); Prothrombin Time 10.6 sec (9.0-12.0)
[2017-09-20 10:10] VITALS: BP 158/81; PULSE 84; RESP 18
--- NOTE | 2017-09-20 11:57 | US ---
EXAMINATION TYPE: US paracentesis abd w/image DATE OF EXAM: 09/20/2017 COMPARISON: NONE HISTORY: Ascites. PROCEDURE: Maximal barrier technique was utilized. The skin overlying a suitable pocket of fluid was localized with ultrasound and the overlying skin was prepped and draped. Ultrasound was utilized with sterile technique. Lidocaine was used for local anesthesia and a skin oly made with a scalpel. Catheter was advanced under direct ultrasound guidance into a suitable pocket of fluid and approximately 5.8 liter s of serous fluid were removed. Catheter was withdrawn and hemostasis achieved. There is no immedia te complication; the patient is discharged in stable condition. IMPRESSION: STATUS POST ULTRASOUND GUIDED PARACENTESIS FOR PALLIATION OF ASCITES. THIS PROCEDURE WA S PERFORMED BY THE UNDERSIGNED.
== END 2017-09-20 10:19 | disposition home or self-care (01) ==
LOC: RADPROMAIN 07:40
PROVIDERS: ATTEND Internal Medicine Hematology & Oncology
DX: R18.8 Other ascites (principal)
CPT/HCPCS: 49083; 85049; 85610; J1642

== ENCOUNTER 2017-09-27 11:59 | Day surgery (SDC) | payer MEDICARE ==
[2017-09-27 12:39] LABS: Mean Platelet Volume 7.5; Platelet Count 280 k/uL (150-450)
[2017-09-27 12:50] VITALS: TEMP 97.1
[2017-09-27 12:52] LABS: INR 1.1 (<1.2)
[2017-09-27] MEDS ORDERED: LIDOCAINE 1% INJ 10MG/ML (20 ML MDV) SQ ONE (13:20)
[2017-09-27 13:41] VITALS: RESP 18
[2017-09-27 14:20] VITALS: BP 127/68; PULSE 60
--- NOTE | 2017-09-27 14:39 | US ---
Therapeutic paracentesis. DATE OF EXAM: 09/27/2017 CLINICAL HISTORY: Ascites The procedure was discussed with the patient. The risks, complications, benefits, and alternatives we re discussed and any questions were answered. Informed consent was obtained. The patient was placed s upine on the ultrasound table and prepped and draped in the usual sterile fashion. All elements of maximal barrier technique were utilized. Under ultrasound guidance, access into the right lower quadrant was obtained, via the paracentesis catheter system and direct ultrasound guidanc e. Approximately 4.2 liters of straw-colored fluid was removed. The patient was stable throughout the pr ocedure and remained stable upon discharge from Department of Radiology. IMPRESSION: Successful therapeutic paracentesis under ultrasound guidance.
== END 2017-09-27 14:15 | disposition home or self-care (01) ==
LOC: RADPROMAIN 11:59
PROVIDERS: ATTEND Internal Medicine Hematology & Oncology
DX: R18.8 Other ascites (principal)
CPT/HCPCS: 85049; 85610; 49083; J2001; J1642

== ENCOUNTER 2017-10-04 12:40 | Day surgery (SDC) | payer MEDICARE ==
[2017-10-04 13:05] VITALS: TEMP 97.6
[2017-10-04 13:12] LABS: Mean Platelet Volume 7.5; Platelet Count 279 k/uL (150-450)
[2017-10-04 13:19] LABS: INR 1.1 (<1.2); Prothrombin Time 10.5 sec (9.0-12.0)
[2017-10-04 14:29] VITALS: BP 153/83; PULSE 68; RESP 16
--- NOTE | 2017-10-04 14:42 | US ---
Therapeutic paracentesis. DATE OF EXAM: 10/04/2017 CLINICAL HISTORY: Ascites The procedure was discussed with the patient. The risks, complications, benefits, and alternatives we re discussed and any questions were answered. Informed consent was obtained. The patient was placed s upine on the ultrasound table and prepped and draped in the usual sterile fashion. All elements of maximal barrier technique were utilized. Under ultrasound guidance, access into the left lower quadrant was obtained, via the paracentesis catheter system and direct ultrasound guidance . Approximately 5.2 liters of straw-colored fluid was removed. The patient was stable throughout the pr ocedure and remained stable upon discharge from Department of Radiology. IMPRESSION: Successful therapeutic paracentesis under ultrasound guidance.
== END 2017-10-04 14:40 | disposition home or self-care (01) ==
LOC: RADPROMAIN 12:40
PROVIDERS: ATTEND Internal Medicine Hematology & Oncology
DX: R18.0 Malignant ascites (principal); R18.8 Other ascites
CPT/HCPCS: 85049; 85610; 49083; J1642

== ENCOUNTER 2017-10-11 11:38 | Day surgery (SDC) | payer MEDICARE ==
[2017-10-11 12:48] LABS: Mean Platelet Volume 7.4; Platelet Count 266 k/uL (150-450)
[2017-10-11 12:53] LABS: INR 1.1 (<1.2); Prothrombin Time 10.8 sec (9.0-12.0)
[2017-10-11 13:13] VITALS: RESP 16; TEMP 97.8
--- NOTE | 2017-10-11 14:09 | US ---
EXAMINATION TYPE: US paracentesis abd w/image DATE OF EXAM: 10/11/2017 COMPARISON: NONE HISTORY: Ascites. PROCEDURE: Maximal barrier technique was utilized. The skin overlying a suitable pocket of fluid was localized with ultrasound and the overlying skin was prepped and draped. Ultrasound was utilized with sterile technique. Lidocaine was used for local anesthesia and a skin oly made with a scalpel. Catheter was advanced under direct ultrasound guidance into a suitable pocket of fluid and approximately 5.4 liter s of serous fluid were removed. Catheter was withdrawn and hemostasis achieved. There is no immedia te complication; the patient is discharged in stable condition. IMPRESSION: STATUS POST ULTRASOUND GUIDED PARACENTESIS FOR PALLIATION OF ASCITES. THIS PROCEDURE WA S PERFORMED BY THE UNDERSIGNED.
[2017-10-11 14:35] VITALS: BP 125/73; PULSE 68
== END 2017-10-11 14:15 | disposition home or self-care (01) ==
LOC: RADPROMAIN 11:38
PROVIDERS: ATTEND Internal Medicine Hematology & Oncology
DX: R18.0 Malignant ascites (principal); R18.8 Other ascites
CPT/HCPCS: 85049; 85610; 49083; J1642

== ENCOUNTER 2017-10-18 07:40 | Day surgery (SDC) | payer MEDICARE ==
[2017-10-18 08:43] VITALS: RESP 16; TEMP 97.5
[2017-10-18 08:46] LABS: Mean Platelet Volume 7.6; Platelet Count 267 k/uL (150-450)
[2017-10-18 08:56] LABS: INR 1.1 (<1.2); Prothrombin Time 10.8 sec (9.0-12.0)
[2017-10-18 10:23] VITALS: BP 131/78; PULSE 74
--- NOTE | 2017-10-18 13:39 | US ---
EXAMINATION TYPE: US paracentesis abd w/image DATE OF EXAM: 10/18/2017 COMPARISON: NONE HISTORY: Ascites. PROCEDURE: Maximal barrier technique was utilized. The skin overlying a suitable pocket of fluid was localized with ultrasound and the overlying skin was prepped and draped. Ultrasound was utilized with sterile technique. Lidocaine was used for local anesthesia and a skin oly made with a scalpel. Catheter was advanced under direct ultrasound guidance into a suitable pocket of fluid and approximately 4 liters of serous fluid were removed. Catheter was withdrawn and hemostasis achieved. There is no immediate complication; the patient is discharged in stable condition. IMPRESSION: STATUS POST ULTRASOUND GUIDED PARACENTESIS FOR PALLIATION OF ASCITES. THIS PROCEDURE WA S PERFORMED BY THE UNDERSIGNED.
== END 2017-10-18 10:45 | disposition home or self-care (01) ==
LOC: RADPROMAIN 07:40
PROVIDERS: ATTEND Internal Medicine Hematology & Oncology
DX: R18.0 Malignant ascites (principal)
CPT/HCPCS: 36415; 49083; 85049; 85610

== ENCOUNTER 2017-10-25 12:15 | Day surgery (SDC) | payer MEDICARE ==
[2017-10-25 12:58] VITALS: RESP 16; TEMP 96.5
[2017-10-25 12:58] LABS: Platelet Count 279 k/uL (150-450)
[2017-10-25 13:10] LABS: INR 1.1 (<1.2); Prothrombin Time 10.7 sec (9.0-12.0)
[2017-10-25] MEDS: HYDROmorphone 1 MG/ML 1 ML SYRINGE IVP PRN ×2 (13:29→14:18)
[2017-10-25 14:48] VITALS: BP 173/92; PULSE 74
--- NOTE | 2017-10-26 10:21 | US ---
EXAMINATION TYPE: US paracentesis abd w/image DATE OF EXAM: 10/25/2017 COMPARISON: NONE HISTORY: Ascites. PROCEDURE: Maximal barrier technique was utilized. The skin overlying a suitable pocket of fluid was localized with ultrasound and the overlying skin was prepped and draped. Ultrasound was utilized with sterile technique. Lidocaine was used for local anesthesia and a skin oly made with a scalpel. Catheter was advanced under direct ultrasound guidance into a suitable pocket of fluid and approximately 4.2 liter s of serous fluid were removed. Catheter was withdrawn and hemostasis achieved. There is no immedia te complication; the patient is discharged in stable condition. IMPRESSION: STATUS POST ULTRASOUND GUIDED PARACENTESIS FOR PALLIATION OF ASCITES. THIS PROCEDURE WA S PERFORMED BY THE UNDERSIGNED.
== END 2017-10-25 15:01 | disposition home or self-care (01) ==
LOC: RADPROMAIN 12:15
PROVIDERS: ATTEND Internal Medicine Hematology & Oncology
DX: R18.0 Malignant ascites (principal)
CPT/HCPCS: 85049; 85610; 49083; J1170

== ENCOUNTER 2017-11-01 09:58 | Day surgery (SDC) | payer MEDICARE ==
[2017-11-01 10:34] LABS: Mean Platelet Volume 7.7; Platelet Count 238 k/uL (150-450)
[2017-11-01 10:41] LABS: INR 1.2 (<1.2); Prothrombin Time 11.2 sec (9.0-12.0)
[2017-11-01 11:10] VITALS: RESP 16; TEMP 97.6
--- NOTE | 2017-11-01 12:00 | US ---
EXAMINATION TYPE: US paracentesis abd w/image DATE OF EXAM: 11/01/2017 CLINICAL HISTORY: Ascites The procedure was discussed with the patient. The risks, complications, benefits, and alternatives we re discussed and any questions were answered. Informed consent was obtained. The patient was placed s upine on the ultrasound table and prepped and draped in the usual sterile fashion. All elements of maximal barrier technique were utilized. Under ultrasound guidance, access into the left lower quadrant was obtained, via the paracentesis catheter system and direct ultrasound guidance . Approximately 4.3 liters of straw-colored fluid was removed. The patient was stable throughout the pr ocedure and remained stable upon discharge from Department of Radiology. IMPRESSION: Successful therapeutic paracentesis under ultrasound guidance.
[2017-11-01 12:05] VITALS: BP 144/78; PULSE 74
== END 2017-11-01 12:10 | disposition home or self-care (01) ==
LOC: RADPROMAIN 09:58
PROVIDERS: ATTEND Internal Medicine Hematology & Oncology
DX: R18.0 Malignant ascites (principal)
CPT/HCPCS: 85049; 85610; 49083; J1642

== ENCOUNTER 2017-11-07 12:16 | Inpatient (IN) | payer MEDICARE ==
[2017-11-07 13:21] LABS: Basophils % (A) 0 %; Eosinophils # (A) 0.1 k/uL (0-0.7); Eosinophils % (A) 1 %; HCT 47.9 % (39.0-53.0); HGB 15.5 gm/dL (13.0-17.5); Lymphocytes # (A) 0.2 k/uL (1.0-4.8); Lymphocytes % (A) 4 %; MCH 33.6 pg (25.0-35.0); MCHC 32.2 g/dL (31.0-37.0); MCV 104.2 fL (80.0-100.0); Macrocytosis Slight; Mean Platelet Volume 7.6; Monocytes # (A) 0.3 k/uL (0-1.0); Monocytes % (A) 5 %; Neutrophils % (A) 89 %; Platelet Count 187 k/uL (150-450); RDW 14.5 % (11.5-15.5); WBC 5.6 k/uL (3.8-10.6)
[2017-11-07] MEDS ORDERED: LIDOCAINE 1% INJ 10MG/ML (20 ML MDV) SQ ONE (14:11)
[2017-11-07] MEDS ORDERED: ONDANSETRON 4 MG TAB PO PRN (15:21)
[2017-11-07] MEDS ORDERED: ONDANSETRON 4 MG/2 ML VIAL IVP PRN (16:35)
--- NOTE | 2017-11-07 16:47 | P.HPIM ---
History of Present Illness H&P Date: 11/07/17 Chief Complaint: Malnutrition This is a 82-year-old male, patient of Dr. Caba. 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 He was diagnosed with colon cancer in 2009. Liver involvement was diagnosed in 2013. Patient has had a colectomy and also liver resection. He had undergone chemotherapy treatment with Dr. Ventura. He completed chemo treatment in July 2017 and was told that the chemo did not help his cancer. Patient gets a weekly paracentesis due to the ascites accumulation from his cancer. He is scheduled for paracentesis tomorrow. Patient has been having worsening nausea and vomiting and generalized weakness due to malnutrition. He was brought into the hospital today for PICC line placement to start TPN. Dr. Caba has directly admitted patient to start TPN in the hospital and had paracentesis tomorrow. Patient is found to have a sodium of 129 potassium of 6 and creatinine 2.87. He'll be placed on IV fluids and TPN has been ordered. Patient denies any fever chills or sweats. Denies any chest pain or shortness of breath. Does not having nausea poor appetite and episodes of vomiting. He did have a stool yesterday which is hard and formed. He denies any chest pain or shortness of breath. Denies any burning with urination. He does report that he is urinating adequately. Patient also has a known history of hypertension hyperlipidemia and hypothyroidism. As well as a history of chronic kidney disease. She also has been having falls at home. No loss of consciousness. Last fall was last week. Review of Systems Please refer to HPI otherwise unremarkable Past Medical History Past Medical History: Cancer, GERD/Reflux, Hyperlipidemia, Hypertension, Thyroid Disorder Additional Past Medical History / Comment(s): COLON CANCER dx 2009(sx)WITH METASTASIS TO LIVER found 2013. LAST CHEMO- july 2017(per family), ascities, weakness/falls, skin tears arms History of Any Multi-Drug Resistant Organisms: None Reported Past Surgical History: Appendectomy, Cholecystectomy Additional Past Surgical History / Comment(s): COLON RESECTION d/t ca, per family"pt had 5# cancerous tumor along with 3/4 liver removed", paracentesis every tuesday, rt arm picc line 11/07/17, cataracts removed .benign stomach polyps removed(while in [place]) Past Anesthesia/Blood Transfusion Reactions: No Reported Reaction Smoking Status: Former smoker - Past Family History Mother Family Medical History: Myocardial Infarction ([place]) Father Family Medical History: CVA/TIA Brother(s) Family Medical History: Coronary Artery Disease (CAD), Deep Vein Thrombosis (DVT ), GI Bleed Additional Family Medical History / Comment(s): xaralto stopped 04/18/17 due to GI bleed Medications and Allergies Home Medications Medication Instructions Recorded Confirmed Type Levothyroxine Sodium 150 mcg PO DAILY 05/29/17 11/07/17 History Pantoprazole Sodium [Protonix] 40 mg PO AC-BID 05/29/17 11/07/17 History Sennosides-Docusate Sodium 1 each PO DAILY PRN #30 tab 06/02/17 11/07/17 Rx [Senokot-S] Ondansetron [Zofran] 4 mg SL Q12HR PRN 10/18/17 11/07/17 History MORPHINE ORAL JUAN ALBERTO CONC 20mg/mL 10 mg PO Q4H PRN 11/01/17 11/07/17 History [Roxanol Oral Soln Conc 20MG/ML] Hyoscyamine Sulfate [Levsin] 0.125 mg PO Q12HR 11/07/17 11/07/17 History Allergies Allergy/AdvReac Type Severity Reaction Status Date / Time No Known Allergies Allergy Verified 11/01/17 12:41 Physical Exam Vitals: Vital Signs Temp Pulse Pulse Resp BP BP Pulse Ox 11/07/17 15:31 97.4 F L 69 14 143/81 99 11/07/17 14:35 14 144/82 99 11/07/17 12:54 98 F 70 16 149/85 94 L Intake and Output 11/07/17 11/07/17 11/07/17 06:59 14:59 22:59 Other: Weight 53.977 kg 53.977 kg Gen.: Cachectic in appearance Head normocephalic Neck supple Lungs clear to auscultation bilaterally no wheezing or crackles Heart regular rate and rhythm S1-S2, no rub or gallop Abdomen is soft diffuse tenderness positive bowel sounds and ascites fluid wave present Extremities no edema Neuro alert and orientated to 3 Results CBC & Chem 7: 11/07/17 13:15 11/07/17 13:15 Labs: Abnormal Lab Results - Last 24 Hours (Table) 11/07/17 11/07/17 Range/Units 13:15 13:15 MCV 104.2 H (80.0-100.0) fL Lymphocytes # 0.2 L (1.0-4.8) k/uL Sodium 129 L (137-145) mmol/L Potassium 6.0 H (3.5-5.1) mmol/L Carbon Dioxide 20 L (22-30) mmol/L BUN 112 H* (9-20) mg/dL Creatinine 2.87 H (0.66-1.25) mg/dL Assessment and Plan Assessment: 1. Metastatic colon cancer with liver involvement and re-recurrent ascites: Patient is scheduled for his weekly paracentesis tomorrow. Consult oncology 2. Severe protein calorie malnutrition due to patient's cancer: Patient is scheduled for PICC line and TPN to be started 3. Acute on chronic renal failure, stage 4. Place patient normal saline at 100 mL an hour. Likely due dehydration from nausea vomiting and poor oral intake. Consult nephrology 4. Hyperkalemia secondary to renal failure. We'll give Kayexalate. Repeat potassium in a.m. 5. Essential hypertension 6. Hyperlipidemia 7. Hypothyroidism GI prophylaxis Protonix We'll initiate DVT prophylaxis tomorrow after paracentesis Time with Patient: Greater than 30 (Greater than 60% of the total time spent in counseling and coordination of care.I performed an examination of the patient and discussed their management with the physician Guest Service Host. I have reviewed the Physician Guest Service Host's notes and agree with the documented findings and plan of care)
--- NOTE | 2017-11-07 16:53 | IR ---
EXAMINATION TYPE: IR cvc insert >=5 years DATE OF EXAM: 11/07/2017 COMPARISON: NONE CLINICAL HISTORY: Weight loss, colon cancer, Needs long-term intravenous access for total parenteral nutrition. PROCEDURE: After informed consent, the skin overlying the left brachial vein was localized with ultrasound and n oted to be compressible and patent. An ultrasound image was obtained and submitted on the patient's chart. The overlying skin was prepped and draped and Lidocaine was used for local anesthesia. A ski n oly was made with a scalpel. Access was gained to the vein under ultrasound guidance with a 21 ga uge needle and a 0.018 inch wire was advanced. Access site was dilated with Peel-Away sheath and cat heter tailored to the appropriate length and advanced such that the distal tip is at the cavoatrial j unction. Spot image was obtained verifying placement. Catheter was fixed to the skin and a sterile dressing was placed following hemostasis. Catheter was aspirated and flushed with saline. Patient w as discharged in stable condition without complication. Maximal barrier technique is utilized. Ultra sound image is documented on the chart. Ultrasound used with sterile technique. Fluoro time and fluoroscopic images submitted to document procedure: 90 intraoperative images, 0.8 mi nutes fluoroscopy time IMPRESSION: STATUS POST ULTRASOUND AND FLUOROSCOPIC GUIDED PICC LINE PLACEMENT, READY FOR USE. THIS PROCEDURE WAS PERFORMED BY THE UNDERSIGNED.
[2017-11-07] MEDS ORDERED: SODIUM POLYSTYRENE SULFONATE 15 GM/60 ML BOTTLE PO STA (17:04)
[2017-11-07] MEDS: PANTOPRAZOLE 40 MG TABLET PO SCH (17:11)
[2017-11-07 17:19] LABS: Glucose,Whole Blood 140 mg/dL (75-99)
[2017-11-07 17:40] LABS: Albumin 2.5 g/dL (3.5-5.0); Calcium 8.8 mg/dL (8.4-10.2); Magnesium 2.6 mg/dL (1.6-2.3); Phosphorus 4.4 mg/dL (2.5-4.5); Total Bilirubin 0.7 mg/dL (0.2-1.3); Total Protein 5.2 g/dL (6.3-8.2)
[2017-11-07] MEDS: SODIUM CHLORIDE 0.9% 1,000 ML IV SCH (17:42)
[2017-11-07 17:43] LABS: Potassium 6.1 mmol/L (3.5-5.1)
[2017-11-07] MEDS ORDERED: [UNRECOGNIZED DRUG - REMARK] IV ONE ×6 (20:00)
[2017-11-07] MEDS: FAT EMULSION 20% 250 ML IV SCH (20:45)
[2017-11-08 00:01] LABS: Glucose,Whole Blood 115 mg/dL (75-99)
[2017-11-08 05:59] LABS: Glucose,Whole Blood 111 mg/dL (75-99)
[2017-11-08] MEDS: INSULIN ASPART 100 UNIT/ML 1 ML 10 ML VIAL SQ SCH ×4 (06:01→17:56)
[2017-11-08 06:19] LABS: Hemoglobin A1C 4.9 % (4.0-6.0)
[2017-11-08] MEDS ORDERED: LEVOTHYROXINE 75 MCG TAB PO SCH (06:30)
[2017-11-08] MEDS: SODIUM CHLORIDE 0.9% 1,000 ML IV SCH ×2 (06:37→15:24)
[2017-11-08] MEDS: MORPHINE SULFATE ER 30 MG TABLET PO SCH ×3 (08:48→20:12)
[2017-11-08] MEDS: PANTOPRAZOLE 40 MG TABLET PO SCH ×2 (08:48→15:32)
[2017-11-08] MEDS: amLODIPine 10 MG TAB PO SCH (08:49)
[2017-11-08 09:14] LABS: Ionized Calcium 5.1 mg/dL (4.5-5.3)
[2017-11-08 09:16] LABS: Basophils % (A) 0 %; Eosinophils % (A) 1 %; HCT 43.3 % (39.0-53.0); HGB 13.7 gm/dL (13.0-17.5); Lymphocytes # (A) 0.2 k/uL (1.0-4.8); Lymphocytes % (A) 4 %; MCH 33.4 pg (25.0-35.0); MCHC 31.7 g/dL (31.0-37.0); MCV 105.2 fL (80.0-100.0); Macrocytosis Moderate; Mean Platelet Volume 7.7; Monocytes # (A) 0.3 k/uL (0-1.0); Monocytes % (A) 5 %; Neutrophils # (A) 4.7 k/uL (1.3-7.7); Neutrophils % (A) 90 %; Platelet Count 128 k/uL (150-450); RBC 4.11 m/uL (4.30-5.90); WBC 5.2 k/uL (3.8-10.6)
[2017-11-08 09:21] LABS: INR 1.1 (<1.2); Prothrombin Time 10.9 sec (9.0-12.0)
[2017-11-08 09:55] LABS: Albumin 2.2 g/dL (3.5-5.0); Calcium 8.2 mg/dL (8.4-10.2); Magnesium 2.4 mg/dL (1.6-2.3); Phosphorus 3.3 mg/dL (2.5-4.5); Total Bilirubin 0.4 mg/dL (0.2-1.3); Total Protein 4.8 g/dL (6.3-8.2)
[2017-11-08 12:23] LABS: Glucose,Whole Blood 115 mg/dL (75-99)
--- NOTE | 2017-11-08 12:43 | P.NPCON ---
History of Present Illness - Reason for Consult acute renal failure - History of Present Illness Reason for consultation: Acute kidney injury History of present illness: Patient is a 82-year-old male seen in renal consultation for acute kidney injury on chronic kidney disease. It appears patient has chronic kidney disease stage III with baseline creatinine in the range of 1.2-1.4. Patient has history of colon cancer with metastasis to the liver. Patient is undergone colectomy and liver resection in the past. He has completed chemotherapy as of July 2017. Patient presented to the hospital with generalized weakness along with nausea and vomiting. He has not been able to eat and drink much. He denies chest pain or shortness of breath. He undergoes weekly paracentesis as well. He received a PICC line this admission and TPN has been initiated. He admits to good urine output. Denies hematuria or dysuria. No history of diabetes. Denies use of NSAIDs. Denies family history of renal disease. Vital signs are stable. General: The patient appeared well nourished and normally developed. HEENT: Head exam is unremarkable. Neck is without jugular venous distension. LUNGS: Lungs are clear to auscultation and percussion. Breath sounds decreased. HEART: Rate and Rhythm are regular. First and second heart sounds normal. No murmurs, rubs or gallops. ABDOMEN: Abdominal exam reveals normal bowel sounds. Moderately distended. EXTREMITITES: No clubbing, cyanosis, or edema. Past Medical History Past Medical History: Cancer, GERD/Reflux, Hyperlipidemia, Hypertension, Thyroid Disorder Additional Past Medical History / Comment(s): COLON CANCER dx 2009(sx)WITH METASTASIS TO LIVER found 2013. LAST CHEMO- july 2017(per family), ascities, weakness/falls, skin tears arms History of Any Multi-Drug Resistant Organisms: None Reported Past Surgical History: Appendectomy, Cholecystectomy Additional Past Surgical History / Comment(s): COLON RESECTION d/t ca, per family"pt had 5# cancerous tumor along with 3/4 liver removed", paracentesis every tuesday, rt arm picc line 11/07/17, cataracts removed .benign stomach polyps removed(while in [place]) Past Anesthesia/Blood Transfusion Reactions: No Reported Reaction Smoking Status: Former smoker - Past Family History Mother Family Medical History: Myocardial Infarction ([place]) Father Family Medical History: CVA/TIA Brother(s) Family Medical History: Coronary Artery Disease (CAD), Deep Vein Thrombosis (DVT ), GI Bleed Additional Family Medical History / Comment(s): xaralto stopped 04/18/17 due to GI bleed Medications and Allergies Home Medications Medication Instructions Recorded Confirmed Type Levothyroxine Sodium 150 mcg PO DAILY 05/29/17 11/07/17 History Pantoprazole Sodium [Protonix] 40 mg PO AC-BID 05/29/17 11/07/17 History Ondansetron [Zofran] 4 mg SL Q12HR PRN 10/18/17 11/07/17 History MORPHINE ORAL JUAN ALBERTO CONC 20mg/mL 10 mg PO Q4H PRN 11/01/17 11/07/17 History [Roxanol Oral Soln Conc 20MG/ML] Hyoscyamine Sulfate [Levsin] 0.125 mg PO Q12HR 11/07/17 11/07/17 History Sennosides-Docusate Sodium 1 tab PO DAILY PRN 11/07/17 11/07/17 History [Senokot-S] Allergies Allergy/AdvReac Type Severity Reaction Status Date / Time No Known Allergies Allergy Verified 11/07/17 17:29 Physical Exam Vitals: Vital Signs Temp Pulse Pulse Resp BP BP Pulse Ox 11/08/17 06:41 98.2 F 86 18 116/63 98 11/07/17 23:00 97.4 F L 65 18 119/60 99 11/07/17 15:31 97.4 F L 69 14 143/81 99 11/07/17 15:20 14 11/07/17 14:35 14 144/82 99 11/07/17 12:54 98 F 70 16 149/85 94 L Intake and Output 11/07/17 11/08/17 11/08/17 22:59 06:59 14:59 Intake Total 600 Balance 600 Intake: Oral 600 Other: Voiding Method Toilet # Voids 0 1 Weight 53.977 kg 53.5 kg Results - Lab Results Most recent lab results Calcium 8.2 mg/dL (8.4-10.2) L 11/08/17 08:32 Phosphorus 3.3 mg/dL (2.5-4.5) 11/08/17 08:32 Magnesium 2.4 mg/dL (1.6-2.3) H 11/08/17 08:32 11/08/17 08:32 11/08/17 08:32 Assessment and Plan Plan: Assessment: 1. Nonoliguric acute kidney injury mostly prerenal improving with IV hydration. This is due to nausea vomiting and poor oral intake. Creatinine was 2.87 on admission and is down to 2.39 today. Urinalysis is benign. 2. Chronic kidney disease stage III with baseline creatinine in the range of 1.2-1.4. 3. Colon cancer with liver metastasis. 4. Hypervolemic hyponatremia secondary to ascites. Patient is intravascularly depleted however. 5. Hyperkalemia secondary to acute kidney injury and metabolic acidosis. 6. Metabolic acidosis secondary to acute kidney injury. Plan: Continue normal saline at 100 mL an hour. Patient has also been started on TPN. Add oral sodium bicarbonate 650 mg twice daily. I will given 25 g of albumin if more than 3 L removed with paracentesis. Avoid nephrotoxic agents. Repeat electrolytes in the morning. Thank you for the consultation. I will continue to follow the patient with you during his hospital stay.
--- NOTE | 2017-11-08 13:19 | FL ---
EXAMINATION TYPE: FL barium swallow DATE OF EXAM: 11/08/2017 CLINICAL HISTORY: History of metastatic colon cancer with new vomiting when eating. TECHNIQUE: A single contrast esophagram is performed utilizing barium. A total of 25 seconds of flu oroscopic time was utilized during procedure. 39 spot images are saved during procedure. COMPARISON: None FINDINGS: Because of patient's underlying weakness only single semiupright supine imaging was perform ed. There is partial visualization of right internal jugular Mediport catheter. Patient is able to dr ink contrast . There is satisfactory motility along course of the esophagus. No intraluminal mass or stricture is present. No suspicious diverticulum is seen. No fixed hiatal hernia is noted. Some gastr oesophageal reflux is identified during real-time performance of study. IMPRESSION: Suboptimal study with gastroesophageal reflux visualized otherwise unremarkable study.
--- NOTE | 2017-11-08 13:36 | US ---
EXAMINATION TYPE: US paracentesis abd w/image DATE OF EXAM: 11/08/2017 CLINICAL HISTORY: Ascites The procedure was discussed with the patient. The risks, complications, benefits, and alternatives we re discussed and any questions were answered. Informed consent was obtained. The patient was placed s upine on the ultrasound table and prepped and draped in the usual sterile fashion. All elements of maximal barrier technique were utilized. Under ultrasound guidance, access into the left lower quadrant was obtained, via the paracentesis catheter system and direct ultrasound guidance . Approximately 4.2 liters of straw-colored fluid was removed. The patient was stable throughout the pr ocedure and remained stable upon discharge from Department of Radiology. IMPRESSION: Successful therapeutic paracentesis under ultrasound guidance.
--- NOTE | 2017-11-08 13:56 | P.PN ---
Subjective Progress Note Date: 11/08/17 This is a 82-year-old male, patient of Dr. Caba. 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 He was diagnosed with colon cancer in 2009. Liver involvement was diagnosed in 2013. Patient has had a colectomy and also liver resection. He had undergone chemotherapy treatment with Dr. Ventura. He completed chemo treatment in July 2017 and was told that the chemo did not help his cancer. Patient gets a weekly paracentesis due to the ascites accumulation from his cancer. He is scheduled for paracentesis tomorrow. Patient has been having worsening nausea and vomiting and generalized weakness due to malnutrition. He was brought into the hospital today for PICC line placement to start TPN. Dr. Caba has directly admitted patient to start TPN in the hospital and had paracentesis tomorrow. Patient is found to have a sodium of 129 potassium of 6 and creatinine 2.87. He'll be placed on IV fluids and TPN has been ordered. Patient denies any fever chills or sweats. Denies any chest pain or shortness of breath. Does not having nausea poor appetite and episodes of vomiting. He did have a stool yesterday which is hard and formed. He denies any chest pain or shortness of breath. Denies any burning with urination. He does report that he is urinating adequately. Patient also has a known history of hypertension hyperlipidemia and hypothyroidism. As well as a history of chronic kidney disease. She also has been having falls at home. No loss of consciousness. Last fall was last week. 11/08/2017 patient had PICC line in place and his been started on TPN. No episodes of vomiting today. He is scheduled for paracentesis. He has been seen by nephrology. Creatinine has shown improvement IV fluids. Scheduled for barium swallow and speech therapy evaluation. Patient denies any chest pain or shortness of breath. No bowel movement today. Denies any burning with urination. hotel general manager is working on insurance coverage in regards to the TPN. Objective - Vital Signs Vital signs: Vital Signs Temp 98.2 F 11/08/17 06:41 Pulse 74 11/08/17 13:00 Resp 16 11/08/17 12:40 BP 142/84 11/08/17 13:00 Pulse Ox 100 11/08/17 13:00 Intake & Output 11/07/17 11/08/17 11/08/17 18:59 06:59 18:59 Intake Total 600 Balance 600 Weight 53.977 kg 53.5 kg Intake: Oral 600 Other: Voiding Method Toilet # Voids 1 - Exam Gen. Cachectic Head normocephalic Neck supple Lungs clear to auscultation bilaterally no wheezing or crackles Heart regular rate and rhythm S1-S2, no rub or gallop Abdomen is soft and abdominal ascites present diffuse tenderness. positive bowel sounds no hepatosplenomegaly Extremities no edema Neuro alert and orientated to 3 - Labs CBC & Chem 7: 11/08/17 08:32 11/08/17 08:32 Labs: Abnormal Lab Results - Last 24 Hours (Table) 11/07/17 11/07/17 11/07/17 Range/Units 16:44 17:14 23:58 RBC (4.30-5.90) m/uL MCV (80.0-100.0) fL Plt Count (150-450) k/uL Lymphocytes # (1.0-4.8) k/uL Sodium 126 L (137-145) mmol/L Potassium 6.1 H* (3.5-5.1) mmol/L Carbon Dioxide 20 L (22-30) mmol/L BUN 112 H* (9-20) mg/dL Creatinine 2.70 H (0.66-1.25) mg/dL Glucose 129 H (74-99) mg/dL POC Glucose (mg/dL) 140 H 115 H (75-99) mg/dL Calcium (8.4-10.2) mg/dL Magnesium 2.6 H (1.6-2.3) mg/dL AST 85 H (17-59) U/L Alkaline Phosphatase 429 H (38-126) U/L Total Protein 5.2 L (6.3-8.2) g/dL Albumin 2.5 L (3.5-5.0) g/dL Triglycerides (<150) mg/dL 11/08/17 11/08/17 11/08/17 Range/Units 05:57 08:32 08:32 RBC 4.11 L (4.30-5.90) m/uL MCV 105.2 H (80.0-100.0) fL Plt Count 128 L (150-450) k/uL Lymphocytes # 0.2 L (1.0-4.8) k/uL Sodium 129 L (137-145) mmol/L Potassium (3.5-5.1) mmol/L Carbon Dioxide 18 L (22-30) mmol/L BUN 97 H (9-20) mg/dL Creatinine 2.39 H (0.66-1.25) mg/dL Glucose 133 H (74-99) mg/dL POC Glucose (mg/dL) 111 H (75-99) mg/dL Calcium 8.2 L (8.4-10.2) mg/dL Magnesium 2.4 H (1.6-2.3) mg/dL AST 70 H (17-59) U/L Alkaline Phosphatase 398 H (38-126) U/L Total Protein 4.8 L (6.3-8.2) g/dL Albumin 2.2 L (3.5-5.0) g/dL Triglycerides 167 H (<150) mg/dL 11/08/17 Range/Units 11:45 RBC (4.30-5.90) m/uL MCV (80.0-100.0) fL Plt Count (150-450) k/uL Lymphocytes # (1.0-4.8) k/uL Sodium (137-145) mmol/L Potassium (3.5-5.1) mmol/L Carbon Dioxide (22-30) mmol/L BUN (9-20) mg/dL Creatinine (0.66-1.25) mg/dL Glucose (74-99) mg/dL POC Glucose (mg/dL) 115 H (75-99) mg/dL Calcium (8.4-10.2) mg/dL Magnesium (1.6-2.3) mg/dL AST (17-59) U/L Alkaline Phosphatase (38-126) U/L Total Protein (6.3-8.2) g/dL Albumin (3.5-5.0) g/dL Triglycerides (<150) mg/dL Assessment and Plan Assessment: 1. Metastatic colon cancer with liver (and re-recurrent ascites: Patient is scheduled for his weekly paracentesis today. Consult oncology 2. 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 3. Acute on chronic renal failure, stage 3. Place patient normal saline at 100 mL an hour. Likely due dehydration from nausea vomiting and poor oral intake. Follow by nephrology. Kidney function showing improvement with IV fluids. 4. Hyperkalemia secondary to renal failure. Improved 5. Essential hypertension 6. Hyperlipidemia 7. Hypothyroidism 4. Hyponatremia secondary to abdominal ascites. Continue with IV fluids. Nephrology monitoring. GI prophylaxis Protonix and DVT prophylaxis subcu heparin I performed an examination of the patient and discussed their management with the physician Research And Evaluation Manager. I have reviewed the Physician Research And Evaluation Manager's notes and agree with the documented findings and plan of care
[2017-11-08] MEDS: ALBUMIN HUMAN 25% 50 ML in EMPTY BAG 1 BAG IVPB SCH ×2 (15:17→16:01)
[2017-11-08] MEDS: SODIUM BICARBONATE TAB 650 MG TAB PO SCH ×2 (15:30→20:29)
[2017-11-08 18:12] LABS: Glucose,Whole Blood 115 mg/dL (75-99)
[2017-11-08] MEDS: FAT EMULSION 20% 250 ML IV SCH (20:12)
[2017-11-08] MEDS: HEPARIN SODIUM,PORCINE 5,000 UNIT/ML 1 ML VIAL SQ SCH (20:27)
[2017-11-08] MEDS ORDERED: LORazepam 2 MG/ML INJ IV PRN (21:11)
--- NOTE | 2017-11-08 21:15 | P.CONS ---
History of Present Illness - Reason for Consult Consult date: 11/08/17 Metastatic Cancer Requesting physician: Kalani Ferris - Chief Complaint weakness - History of Present Illness Mr. Klein has a history of stage IIA colon cancer for which he had a resection in December 2009. He opted against adjuvant therapy and is undergoing watchful waiting. He was seen by Dr Gonzalez in for follow-up : was doing well and asymptomatic: follow up by PCP recommended. He denied any local, or constitutional symptoms of malignancy. Liver Bx : Metastatic Colon Ca, PET Scan : disease confined to liver ( faint activity in colon ). He was seen by Dr Davies, had R hepatic lobectomy : Positive margins. From [id number] he underwent many different lines of therapy in which controlled his diease for some time, although most recently was receiving lonsurf and his symptoms continued to get progressively worse. He last was seen by Dr. Liang in and at that time the Lonsurf was discontinued and comfort measures were discussed. Per Dr. Liang they agreed at that time and was set up for standing weekly paracentesis's, although Tyler continued to become more progressively ill. He has been unable to hold food down, suffering from constipation requiring manual disimpaction, he has lost more weight, and unable to consume po intake. He was admitted to the hospital for paracentesis, picc line placement and initiation of TPN. During evaluation today of Tyler, he was surrounding by two daughters, and son. We had a long discussion related to goals of care, and the realistic advancement of his disease. They are open to Hospice care, and would like him at home, although they were confused about the options while on hospice. THey thought hospice was subject to not being able to undergo paracentesis any further, although paracentesis is what makes him "feel more comfort". Since he is unable to hold any medications downs it is unclear if he is receiving effects of laxatives and/or extended release pain medications. THey understand the TPN potentially will worsen his situation and not change the overall prognosis or comfort levels. They agree to change his current rescusistation status to a complete DNR. THey have agreed to meet with hospice, requesting [facility] in the am to assist in guidance and plan for home hospice care. Review of Systems A 14 point review assessed and completed and all neg except hpi Past Medical History Past Medical History: Cancer, GERD/Reflux, Hyperlipidemia, Hypertension, Thyroid Disorder Additional Past Medical History / Comment(s): COLON CANCER dx 2009(sx)WITH METASTASIS TO LIVER found 2013. LAST CHEMO- july 2017(per family), ascities, weakness/falls, skin tears arms History of Any Multi-Drug Resistant Organisms: None Reported Past Surgical History: Appendectomy, Cholecystectomy Additional Past Surgical History / Comment(s): COLON RESECTION d/t ca, per family"pt had 5# cancerous tumor along with 3/4 liver removed", paracentesis every tuesday, rt arm picc line 11/07/17, cataracts removed .benign stomach polyps removed(while in [place]) Past Anesthesia/Blood Transfusion Reactions: No Reported Reaction Smoking Status: Former smoker - Past Family History Mother Family Medical History: Myocardial Infarction ([place]) Father Family Medical History: CVA/TIA Brother(s) Family Medical History: Coronary Artery Disease (CAD), Deep Vein Thrombosis (DVT ), GI Bleed Additional Family Medical History / Comment(s): xaralto stopped 04/18/17 due to GI bleed Medications and Allergies Home Medications Medication Instructions Recorded Confirmed Type Levothyroxine Sodium 150 mcg PO DAILY 05/29/17 11/08/17 History Pantoprazole Sodium [Protonix] 40 mg PO AC-BID 05/29/17 11/08/17 History Ondansetron [Zofran] 4 mg SL Q12HR PRN 10/18/17 11/08/17 History MORPHINE ORAL JUAN ALBERTO CONC 20mg/mL 10 mg PO Q4H PRN 11/01/17 11/08/17 History [Roxanol Oral Soln Conc 20MG/ML] Hyoscyamine Sulfate [Levsin] 0.125 mg PO Q12HR 11/07/17 11/08/17 History Sennosides-Docusate Sodium 1 tab PO DAILY PRN 11/07/17 11/08/17 History [Senokot-S] Allergies Allergy/AdvReac Type Severity Reaction Status Date / Time No Known Allergies Allergy Verified 11/08/17 15:44 Physical Exam Vitals: Vital Signs Temp Pulse Resp BP BP Pulse Ox 11/08/17 16:00 18 11/08/17 14:30 97.5 F L 85 20 133/70 98 11/08/17 13:20 77 16 148/80 100 11/08/17 13:00 74 142/84 100 11/08/17 12:40 72 16 156/88 100 11/08/17 08:00 16 11/08/17 06:41 98.2 F 86 18 116/63 98 11/07/17 23:00 97.4 F L 65 18 119/60 99 Intake and Output 11/08/17 11/08/17 11/08/17 06:59 14:59 22:59 Intake Total 600 Balance 600 Intake: Oral 600 Other: # Voids 1 1 Weight 53.5 kg - Constitutional Chronicallu ill appearing General appearance: cooperative, thin - EENT Eyes: poor dentition ENT: NA/AT, normal oropharynx - Neck supple, trachea midline - Respiratory Respiratory: bilateral: diminished (bibasilar) - Cardiovascular Rhythm: regular Heart sounds: normal: S1, S2 - Gastrointestinal General gastrointestinal: decreased bowel sounds, distended, hepatomegaly - Integumentary Integumentary: pale - Neurologic no focal defects - Musculoskeletal Musculoskeletal: generalized weakness - Psychiatric Psychiatric: A&O x's 3, intact judgment & insight Results CBC & Chem 7: 11/08/17 08:32 11/08/17 08:32 Labs: Abnormal Lab Results - Last 24 Hours (Table) 11/07/17 11/08/17 11/08/17 Range/Units 23:58 05:57 08:32 RBC 4.11 L (4.30-5.90) m/uL MCV 105.2 H (80.0-100.0) fL Plt Count 128 L (150-450) k/uL Lymphocytes # 0.2 L (1.0-4.8) k/uL Sodium (137-145) mmol/L Carbon Dioxide (22-30) mmol/L BUN (9-20) mg/dL Creatinine (0.66-1.25) mg/dL Glucose (74-99) mg/dL POC Glucose (mg/dL) 115 H 111 H (75-99) mg/dL Calcium (8.4-10.2) mg/dL Magnesium (1.6-2.3) mg/dL AST (17-59) U/L Alkaline Phosphatase (38-126) U/L Total Protein (6.3-8.2) g/dL Albumin (3.5-5.0) g/dL Triglycerides (<150) mg/dL 11/08/17 11/08/17 11/08/17 Range/Units 08:32 11:45 18:06 RBC (4.30-5.90) m/uL MCV (80.0-100.0) fL Plt Count (150-450) k/uL Lymphocytes # (1.0-4.8) k/uL Sodium 129 L (137-145) mmol/L Carbon Dioxide 18 L (22-30) mmol/L BUN 97 H (9-20) mg/dL Creatinine 2.39 H (0.66-1.25) mg/dL Glucose 133 H (74-99) mg/dL POC Glucose (mg/dL) 115 H 115 H (75-99) mg/dL Calcium 8.2 L (8.4-10.2) mg/dL Magnesium 2.4 H (1.6-2.3) mg/dL AST 70 H (17-59) U/L Alkaline Phosphatase 398 H (38-126) U/L Total Protein 4.8 L (6.3-8.2) g/dL Albumin 2.2 L (3.5-5.0) g/dL Triglycerides 167 H (<150) mg/dL Assessment and Plan Plan: Assessment and Recommendations: 1. Metastatic COlon Cancer with progression: - Prognosis is Poor and overall goal is comfort care. - I have discussed the options of comfort and hospice care in detail with patient as well as plan with [facility] and PA with Primary Team 2. Recurrent Malignant ABdominal Ascites 3. YAMILET/CKD: - While patient is here can Nephro convert NAHCO in IV until discharge to decrease po med use 4. Severe Protein Calorie malnutrtion PLAN: - Informational Meeting in AM with [facility], Goal HOME HOSPICE BY TUESDAY AFTER PIGTAIL/PLEUREX abdominal Catheter - Change Extended release pain medications to fentanyl patch from PO MS contin as unable to digest PO intake - Patient has been made a complete NO CPR/DNR, family in agreement and understand every aspect of this decision - Interventional Radiology to please place catheter as this is for comfort in a patient who will be too weak to transport weekly to hospital for paracentesis as he has a fast actively declining status and wishes to spend his limited time at home with his family. The risk for infection from catheter have been discussed but the benefit of the comfort to drain abdominal ascites fluid from home outweigh risks of infection in the overal goal of comfort - They agree and understand IV fluid and TPN will not continue at home but is to continue until IR is able to place drainage Greater than an hour spent counseling and coordinating care for this patient.
[2017-11-08] MEDS: HYDROmorphone 1 MG/ML 1 ML SYRINGE IVP PRN (22:21)
[2017-11-08] MEDS: [UNRECOGNIZED DRUG - REMARK] IV SCH ×6 (22:21)
[2017-11-08] MEDS: SENNOSIDES-DOCUSATE SODIUM 1 EACH TAB PO SCH (22:21)
[2017-11-08] MEDS: ONDANSETRON 4 MG/2 ML VIAL IVP SCH (22:33)
[2017-11-09 00:02] LABS: Glucose,Whole Blood 129 mg/dL (75-99)
[2017-11-09] MEDS: INSULIN ASPART 100 UNIT/ML 1 ML 10 ML VIAL SQ SCH ×4 (00:04→18:23)
[2017-11-09] MEDS: ONDANSETRON 4 MG/2 ML VIAL IVP SCH ×4 (03:57→20:48)
[2017-11-09] MEDS: SODIUM CHLORIDE 0.9% 1,000 ML IV SCH ×3 (04:46→20:47)
[2017-11-09 05:38] LABS: Glucose,Whole Blood 105 mg/dL (75-99)
[2017-11-09 06:02] LABS: Basophils % (A) 0 %; Eosinophils # (A) 0.1 k/uL (0-0.7); Eosinophils % (A) 2 %; HCT 37.9 % (39.0-53.0); HGB 11.9 gm/dL (13.0-17.5); Lymphocytes # (A) 0.3 k/uL (1.0-4.8); Lymphocytes % (A) 8 %; MCH 33.7 pg (25.0-35.0); MCHC 31.4 g/dL (31.0-37.0); MCV 107.2 fL (80.0-100.0); Macrocytosis Moderate; Mean Platelet Volume 7.7; Monocytes # (A) 0.3 k/uL (0-1.0); Monocytes % (A) 7 %; Neutrophils # (A) 3.4 k/uL (1.3-7.7); Neutrophils % (A) 82 %; Platelet Count 111 k/uL (150-450); RBC 3.53 m/uL (4.30-5.90); RDW 14.9 % (11.5-15.5); WBC 4.2 k/uL (3.8-10.6)
[2017-11-09 06:16] LABS: Albumin 2.2 g/dL (3.5-5.0); Calcium 8.1 mg/dL (8.4-10.2); Magnesium 2.2 mg/dL (1.6-2.3); Phosphorus 3.2 mg/dL (2.5-4.5); Potassium 4.4 mmol/L (3.5-5.1); Total Bilirubin 0.3 mg/dL (0.2-1.3); Total Protein 4.4 g/dL (6.3-8.2)
[2017-11-09] MEDS: SENNOSIDES-DOCUSATE SODIUM 1 EACH TAB PO SCH ×2 (08:34→20:48)
[2017-11-09] MEDS: PANTOPRAZOLE 40 MG TABLET PO SCH ×2 (08:36→15:52)
[2017-11-09] MEDS: SODIUM BICARBONATE TAB 650 MG TAB PO SCH ×2 (08:36→20:48)
[2017-11-09] MEDS: amLODIPine 10 MG TAB PO SCH (08:36)
[2017-11-09] MEDS: HEPARIN SODIUM,PORCINE 5,000 UNIT/ML 1 ML VIAL SQ SCH ×2 (08:47→20:48)
[2017-11-09 11:34] VITALS: BMI 17.4
[2017-11-09 11:50] LABS: Glucose,Whole Blood 107 mg/dL (75-99)
--- NOTE | 2017-11-09 11:51 | P.PN ---
Subjective Patient is seen in follow-up for acute kidney injury.creatinine was 2.39 yesterday and is down to 1.9 today. Patient has history of colon cancer with liver metastasis. He undergoes weekly paracentesis. Last paracentesis on November 08 at 4.2 L removed. He did receive 25 g of albumin. He had a PICC line placed yesterday as well. He is maintained on IV fluids as well as TPN which was started yesterday. Denies chest pain or shortness of breath. Admits to good urine output. Vital signs are stable. General: The patient appeared well nourished and normally developed. HEENT: Head exam is unremarkable. Neck is without jugular venous distension. LUNGS: Lungs are clear to auscultation and percussion. Breath sounds decreased. HEART: Rate and Rhythm are regular. First and second heart sounds normal. No murmurs, rubs or gallops. ABDOMEN: Abdominal exam reveals normal bowel sounds. Non-tender and non- distended. No evidence of peritonitis. EXTREMITITES: No clubbing, cyanosis, or edema. Objective - Vital Signs Vital signs: Vital Signs Temp 97.9 F 11/09/17 06:30 Pulse 77 11/09/17 06:30 Resp 18 11/09/17 06:30 BP 108/63 11/09/17 06:30 Pulse Ox 99 11/09/17 06:30 Intake & Output 11/08/17 11/09/17 11/09/17 18:59 06:59 18:59 Intake Total 600 Balance 600 Weight 53.5 kg Intake: Oral 600 Other: Voiding Method Bedside Commode # Voids 1 1 # Bowel Movements 0 - Labs CBC & Chem 7: 11/09/17 05:51 11/09/17 05:51 Labs: Abnormal Lab Results - Last 24 Hours (Table) 11/08/17 11/08/17 11/09/17 Range/Units 11:45 18:06 00:00 RBC (4.30-5.90) m/uL Hgb (13.0-17.5) gm/dL Hct (39.0-53.0) % MCV (80.0-100.0) fL Plt Count (150-450) k/uL Lymphocytes # (1.0-4.8) k/uL Sodium (137-145) mmol/L BUN (9-20) mg/dL Creatinine (0.66-1.25) mg/dL POC Glucose (mg/dL) 115 H 115 H 129 H (75-99) mg/dL Calcium (8.4-10.2) mg/dL Alkaline Phosphatase (38-126) U/L Total Protein (6.3-8.2) g/dL Albumin (3.5-5.0) g/dL 11/09/17 11/09/17 11/09/17 Range/Units 05:37 05:51 05:51 RBC 3.53 L (4.30-5.90) m/uL Hgb 11.9 L (13.0-17.5) gm/dL Hct 37.9 L (39.0-53.0) % MCV 107.2 H (80.0-100.0) fL Plt Count 111 L (150-450) k/uL Lymphocytes # 0.3 L (1.0-4.8) k/uL Sodium 132 L (137-145) mmol/L BUN 80 H (9-20) mg/dL Creatinine 1.98 H (0.66-1.25) mg/dL POC Glucose (mg/dL) 105 H (75-99) mg/dL Calcium 8.1 L (8.4-10.2) mg/dL Alkaline Phosphatase 311 H (38-126) U/L Total Protein 4.4 L (6.3-8.2) g/dL Albumin 2.2 L (3.5-5.0) g/dL Assessment and Plan Plan: Assessment: 1. Nonoliguric acute kidney injury mostly prerenal improving with IV hydration. This is due to nausea vomiting and poor oral intake. Creatinine was 2.87 on admission and is down to 1.98 today. Urinalysis is benign. 2. Chronic kidney disease stage III with baseline creatinine in the range of 1.2-1.4. 3. Colon cancer with liver metastasis. 4. Hypervolemic hyponatremia secondary to ascites. Patient is intravascularly depleted however. Improved. 5. Hyperkalemia secondary to acute kidney injury and metabolic acidosis. Iproved. 6. Metabolic acidosis secondary to acute kidney injury. Plan: Decrease normal saline to 70 mL an hour. Patient has also been started on TPN. Maintain oral sodium bicarbonate 650 mg twice daily. Avoid nephrotoxic agents. Repeat electrolytes in the morning. Encouraged oral intake as able to tolerate.
--- NOTE | 2017-11-09 15:12 | P.PN ---
Subjective Progress Note Date: 11/09/17 This is a 82-year-old male, patient of Dr. Caba. 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 He was diagnosed with colon cancer in 2009. Liver involvement was diagnosed in 2013. Patient has had a colectomy and also liver resection. He had undergone chemotherapy treatment with Dr. Ventura. He completed chemo treatment in July 2017 and was told that the chemo did not help his cancer. Patient gets a weekly paracentesis due to the ascites accumulation from his cancer. He is scheduled for paracentesis tomorrow. Patient has been having worsening nausea and vomiting and generalized weakness due to malnutrition. He was brought into the hospital today for PICC line placement to start TPN. Dr. Caba has directly admitted patient to start TPN in the hospital and had paracentesis tomorrow. Patient is found to have a sodium of 129 potassium of 6 and creatinine 2.87. He'll be placed on IV fluids and TPN has been ordered. Patient denies any fever chills or sweats. Denies any chest pain or shortness of breath. Does not having nausea poor appetite and episodes of vomiting. He did have a stool yesterday which is hard and formed. He denies any chest pain or shortness of breath. Denies any burning with urination. He does report that he is urinating adequately. Patient also has a known history of hypertension hyperlipidemia and hypothyroidism. As well as a history of chronic kidney disease. She also has been having falls at home. No loss of consciousness. Last fall was last week. 11/08/2017 patient had PICC line in place and his been started on TPN. No episodes of vomiting today. He is scheduled for paracentesis. He has been seen by nephrology. Creatinine has shown improvement IV fluids. Scheduled for barium swallow and speech therapy evaluation. Patient denies any chest pain or shortness of breath. No bowel movement today. Denies any burning with urination. customer consulting manager is working on insurance coverage in regards to the TPN. On 11/09/2017 Pushpa Parkinson PROTOCOL OFFICER per oncology had in-depth conversation with patient and family yesterday in regards to treatment. Patient and family agreed to meet with hospice and discussed pigtail catheter placement to help patient "few more comfort". Interventional radiology consulted for possible pigtail placement. Nursing staff that they are unable to place catheter at this facility. Discussed case with oncology PROTOCOL OFFICER. Family meeting with hospice. At this time patient denies chest pain or shortness of breath. Patient is currently getting TPN. Objective - Vital Signs Vital signs: Vital Signs Temp 97.9 F 11/09/17 06:30 Pulse 77 11/09/17 06:30 Resp 18 11/09/17 06:30 BP 108/63 11/09/17 06:30 Pulse Ox 99 11/09/17 06:30 Intake & Output 11/08/17 11/09/17 11/09/17 18:59 06:59 18:59 Intake Total 600 Balance 600 Weight 53.5 kg Intake: Oral 600 Other: Voiding Method Bedside Commode # Voids 1 1 # Bowel Movements 0 - Exam Gen. Cachectic Head normocephalic Neck supple Lungs clear to auscultation bilaterally no wheezing or crackles Heart regular rate and rhythm S1-S2, no rub or gallop Abdomen is soft and abdominal ascites present diffuse tenderness. positive bowel sounds no hepatosplenomegaly Extremities no edema Neuro alert and orientated to 3 - Labs CBC & Chem 7: 11/09/17 05:51 11/09/17 05:51 Labs: Abnormal Lab Results - Last 24 Hours (Table) 11/08/17 11/09/17 11/09/17 Range/Units 18:06 00:00 05:37 RBC (4.30-5.90) m/uL Hgb (13.0-17.5) gm/dL Hct (39.0-53.0) % MCV (80.0-100.0) fL Plt Count (150-450) k/uL Lymphocytes # (1.0-4.8) k/uL Sodium (137-145) mmol/L BUN (9-20) mg/dL Creatinine (0.66-1.25) mg/dL POC Glucose (mg/dL) 115 H 129 H 105 H (75-99) mg/dL Calcium (8.4-10.2) mg/dL Alkaline Phosphatase (38-126) U/L Total Protein (6.3-8.2) g/dL Albumin (3.5-5.0) g/dL 11/09/17 11/09/17 11/09/17 Range/Units 05:51 05:51 11:47 RBC 3.53 L (4.30-5.90) m/uL Hgb 11.9 L (13.0-17.5) gm/dL Hct 37.9 L (39.0-53.0) % MCV 107.2 H (80.0-100.0) fL Plt Count 111 L (150-450) k/uL Lymphocytes # 0.3 L (1.0-4.8) k/uL Sodium 132 L (137-145) mmol/L BUN 80 H (9-20) mg/dL Creatinine 1.98 H (0.66-1.25) mg/dL POC Glucose (mg/dL) 107 H (75-99) mg/dL Calcium 8.1 L (8.4-10.2) mg/dL Alkaline Phosphatase 311 H (38-126) U/L Total Protein 4.4 L (6.3-8.2) g/dL Albumin 2.2 L (3.5-5.0) g/dL Assessment and Plan Assessment: 1. Metastatic colon cancer with liver (and re-recurrent ascites: Patient is scheduled for his weekly paracentesis today. PROTOCOL OFFICER per oncology had lengthy discussion with family and patient yesterday in regards to hospice care. Family concerned about patient being able to receive Paracentesis while on hospice due to the paracentesis increasing patient comfort. [facility] hospice has been consulted. IR consulted for Pigtail/Pleurex abdominal catheter placement. Per nursing staff IR unable to perform Pigtail/Pleurex catheter placement at this facility. Dr. Xiong per oncology updated 2. 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 3. Acute on chronic renal failure, stage 3. Place patient normal saline at 100 mL an hour. Likely due dehydration from nausea vomiting and poor oral intake. Follow by nephrology. Kidney function showing improvement with IV fluids. 4. Hyperkalemia secondary to renal failure. Improved 5. Essential hypertension 6. Hyperlipidemia 7. Hypothyroidism 4. Hyponatremia secondary to abdominal ascites. Continue with IV fluids. Nephrology monitoring. sodium improving to 132 GI prophylaxis Protonix and DVT prophylaxis subcu heparin I performed an examination of the patient and discussed their management with the Nurse Practitioner. I have reviewed the Nurse Practitioner's notes and agree with the documented findings and plan of care
[2017-11-09 17:09] LABS: Glucose,Whole Blood 121 mg/dL (75-99)
[2017-11-09] MEDS: HYDROmorphone 1 MG/ML 1 ML SYRINGE IVP PRN (20:08)
[2017-11-09] MEDS: FAT EMULSION 20% 250 ML IV SCH (20:47)
[2017-11-09] MEDS: [UNRECOGNIZED DRUG - REMARK] IV SCH ×6 (20:47)
[2017-11-09 21:53] LABS: Glucose,Whole Blood 110 mg/dL (75-99)
[2017-11-10 01:01] LABS: Glucose,Whole Blood 97 mg/dL (75-99)
[2017-11-10] MEDS: INSULIN ASPART 100 UNIT/ML 1 ML 10 ML VIAL SQ SCH ×3 (01:14→13:40)
[2017-11-10] MEDS: SODIUM CHLORIDE 0.9% 1,000 ML IV SCH ×2 (04:55→08:27)
[2017-11-10] MEDS: ONDANSETRON 4 MG/2 ML VIAL IVP SCH ×2 (04:55→10:51)
[2017-11-10 06:39] LABS: Glucose,Whole Blood 122 mg/dL (75-99)
[2017-11-10] MEDS: amLODIPine 10 MG TAB PO SCH (08:24)
[2017-11-10] MEDS: HEPARIN SODIUM,PORCINE 5,000 UNIT/ML 1 ML VIAL SQ SCH (08:26)
[2017-11-10] MEDS: PANTOPRAZOLE 40 MG TABLET PO SCH (08:26)
[2017-11-10] MEDS: SODIUM BICARBONATE TAB 650 MG TAB PO SCH (08:27)
[2017-11-10] MEDS: SENNOSIDES-DOCUSATE SODIUM 1 EACH TAB PO SCH (08:32)
[2017-11-10 09:19] LABS: Albumin 2.2 g/dL (3.5-5.0); Calcium 8.4 mg/dL (8.4-10.2); Magnesium 2.1 mg/dL (1.6-2.3); Phosphorus 2.2 mg/dL (2.5-4.5); Potassium 4.5 mmol/L (3.5-5.1); Total Bilirubin 0.4 mg/dL (0.2-1.3); Total Protein 4.5 g/dL (6.3-8.2)
[2017-11-10 09:51] LABS: Basophils % (A) 0 %; Eosinophils # (A) 0.1 k/uL (0-0.7); Eosinophils % (A) 1 %; HCT 41.6 % (39.0-53.0); HGB 13.4 gm/dL (13.0-17.5); Hypochromasia Slight; Lymphocytes # (A) 0.3 k/uL (1.0-4.8); Lymphocytes % (A) 6 %; MCH 34.3 pg (25.0-35.0); MCHC 32.2 g/dL (31.0-37.0); MCV 106.7 fL (80.0-100.0); Macrocytosis Moderate; Mean Platelet Volume 8.5; Monocytes # (A) 0.3 k/uL (0-1.0); Monocytes % (A) 6 %; Neutrophils # (A) 3.8 k/uL (1.3-7.7); Neutrophils % (A) 85 %; Platelet Count 108 k/uL (150-450); RDW 14.4 % (11.5-15.5); WBC 4.5 k/uL (3.8-10.6)
[2017-11-10] MEDS ORDERED: SODIUM PHOSPHATE 10 MMOL in SODIUM CHLORIDE 0.9% 100 ML IVPB ONE (10:00)
[2017-11-10] MEDS: HYDROmorphone 1 MG/ML 1 ML SYRINGE IVP PRN (11:02)
--- NOTE | 2017-11-10 11:31 | P.PN ---
Subjective Patient is seen in follow-up for acute kidney injury.creatinine was 2.39 yesterday and is down to 1.65 today. Patient has history of colon cancer with liver metastasis. He undergoes weekly paracentesis. Last paracentesis on November 08 at 4.2 L removed. He did receive 25 g of albumin. He had a PICC line placed this admission for TPN. Denies chest pain or shortness of breath. Admits to good urine output. Oral intake is poor. Vital signs are stable. General: The patient appeared well nourished and normally developed. HEENT: Head exam is unremarkable. Neck is without jugular venous distension. LUNGS: Lungs are clear to auscultation and percussion. Breath sounds decreased. HEART: Rate and Rhythm are regular. First and second heart sounds normal. No murmurs, rubs or gallops. ABDOMEN: Abdominal exam reveals normal bowel sounds. Non-tender and non- distended. No evidence of peritonitis. EXTREMITITES: No clubbing, cyanosis, or edema. Objective - Vital Signs Vital signs: Vital Signs Temp 97.0 F L 11/10/17 08:03 Pulse 83 11/10/17 08:03 Resp 16 11/10/17 08:03 BP 112/57 11/10/17 08:03 Pulse Ox 98 11/10/17 08:03 Intake & Output 11/09/17 11/10/17 11/10/17 18:59 06:59 18:59 Intake Total 600 1421.667 Output Total 575 Balance 25 1421.667 Weight 53.5 kg Intake: Intake, IV Titration 1121.667 Amount Dextrose 50%-Water Vial 1121.667 200 ml Mvi, Adult No.4 with Vit K 10 ml Trace ( Conc-1Ml/Dose) 1 ml Sodium Acetate 30 meq Calcium Gluconate 1,000 mg In Amino Acid 5%-D15w 1,000 ml @ 50 mls/hr IV . Q24H [facility] Rx#:[id number] Oral 600 300 Output: Urine 575 Other: Voiding Method Bedside Commode # Voids 1 2 - Labs CBC & Chem 7: 11/10/17 08:14 11/10/17 08:14 Labs: Abnormal Lab Results - Last 24 Hours (Table) 11/09/17 11/09/17 11/09/17 Range/Units 11:47 16:52 21:41 RBC (4.30-5.90) m/uL MCV (80.0-100.0) fL Plt Count (150-450) k/uL Lymphocytes # (1.0-4.8) k/uL Sodium (137-145) mmol/L Carbon Dioxide (22-30) mmol/L BUN (9-20) mg/dL Creatinine (0.66-1.25) mg/dL Glucose (74-99) mg/dL POC Glucose (mg/dL) 107 H 121 H 110 H (75-99) mg/dL Phosphorus (2.5-4.5) mg/dL AST (17-59) U/L Alkaline Phosphatase (38-126) U/L Total Protein (6.3-8.2) g/dL Albumin (3.5-5.0) g/dL 11/10/17 11/10/17 11/10/17 Range/Units 06:32 08:14 08:14 RBC 3.90 L (4.30-5.90) m/uL MCV 106.7 H (80.0-100.0) fL Plt Count 108 L (150-450) k/uL Lymphocytes # 0.3 L (1.0-4.8) k/uL Sodium 130 L (137-145) mmol/L Carbon Dioxide 19 L (22-30) mmol/L BUN 69 H (9-20) mg/dL Creatinine 1.65 H (0.66-1.25) mg/dL Glucose 123 H (74-99) mg/dL POC Glucose (mg/dL) 122 H (75-99) mg/dL Phosphorus 2.2 L (2.5-4.5) mg/dL AST 61 H (17-59) U/L Alkaline Phosphatase 345 H (38-126) U/L Total Protein 4.5 L (6.3-8.2) g/dL Albumin 2.2 L (3.5-5.0) g/dL Assessment and Plan Plan: Assessment: 1. Nonoliguric acute kidney injury mostly prerenal improving with IV hydration. This is due to nausea vomiting and poor oral intake. Creatinine was 2.87 on admission and is down to 1.65 today. Urinalysis is benign. 2. Chronic kidney disease stage III with baseline creatinine in the range of 1.2-1.4. 3. Colon cancer with liver metastasis. 4. Hypervolemic hyponatremia secondary to ascites. Patient was intravascularly depleted however. 5. Hyperkalemia secondary to acute kidney injury and metabolic acidosis. Iproved. 6. Metabolic acidosis secondary to acute kidney injury. 7. Hypophosphatemia from poor oral intake. Plan: Hep-Lock IV fluids. Maintain TPN. Maintain oral sodium bicarbonate 650 mg twice daily. Avoid nephrotoxic agents. Repeat electrolytes in the morning. Encouraged oral intake as able to tolerate. Phosphorus being replaced.
[2017-11-10 12:30] LABS: Glucose,Whole Blood 114 mg/dL (75-99)
[2017-11-10 14:28] VITALS: BP 96/60; PULSE 82; RESP 20; TEMP 98.2
--- NOTE | 2017-11-10 14:49 | P.DS ---
Providers Date of admission: 11/08/17 08:34 Expected date of discharge: 11/10/17 Attending physician: Braden Jackson Consults: 11/07/17 15:18 Consult Physician Routine Consulting Provider: Braden Jackson Consult Reason/Comments: tpn Do you want consulting provider notified?: Yes 11/07/17 16:04 Consult Physician Urgent Consulting Provider: Wilson Car Consult Reason/Comments: scheduled paracentesis tomorrow, do as inpt Do you want consulting provider notified?: Yes 11/07/17 16:47 Consult Physician Routine Consulting Provider: Casimiro Xiong Consult Reason/Comments: Metastatic colon cancer Do you want consulting provider notified?: Yes 11/07/17 16:48 Consult Physician Routine Consulting Provider: Mitchel Hinds Consult Reason/Comments: YAMILET Do you want consulting provider notified?: Yes Primary care physician: [facility] Course: Discharge diagnosis 1. Metastatic colon cancer with liver (and re-recurrent ascites: Patient is scheduled for his weekly paracentesis today. LAB COURIER per oncology had lengthy discussion with family and patient yesterday in regards to hospice care. Family concerned about patient being able to receive Paracentesis while on hospice due to the paracentesis increasing patient comfort. [facility] hospice has been consulted. IR consulted for Pigtail/Pleurex abdominal catheter placement. Per nursing staff IR unable to perform Pigtail/Pleurex catheter placement at this facility. Dr. Xiong per oncology updated. At this time patient declining pigtail Pleurx catheter placement per patient if wanted. At this point they are not moving forward with hospice. We'll address in the future. Patient and family would like to go home at this time with home healthcare. Patient has oncology appointment tomorrow. Oncology office prescribing Roxanol. Patient informed that they must warp picker the prescription from office. Sodium bicarbonate 650 mg twice a day has been added. 2. 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 Will be discharged home on TPN. Case Management arranged 3. Acute on chronic renal failure, stage 3. Place patient normal saline at 100 mL an hour. Likely due dehydration from nausea vomiting and poor oral intake. Follow by nephrology. Kidney function showing improvement with IV fluids. Creatinine 1.65 and bun 69 per nursing staff nephrology has cleared patient for discharge 4. Hyperkalemia secondary to renal failure. Improved. 4.5 5. Essential hypertension 6. Hyperlipidemia 7. Hypothyroidism 4. Hyponatremia secondary to abdominal ascites. Continue with IV fluids. Nephrology monitoring. sodium improving to 132. Sodium bicarbonate 650 mg twice a day has been added. Hospital Course This is a 82-year-old male, patient of Dr. Caba. 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 He was diagnosed with colon cancer in 2009. Liver involvement was diagnosed in 2013. Patient has had a colectomy and also liver resection. He had undergone chemotherapy treatment with Dr. Ventura. He completed chemo treatment in July 2017 and was told that the chemo did not help his cancer. Patient gets a weekly paracentesis due to the ascites accumulation from his cancer. He is scheduled for paracentesis tomorrow. Patient has been having worsening nausea and vomiting and generalized weakness due to malnutrition. He was brought into the hospital today for PICC line placement to start TPN. Dr. Caba has directly admitted patient to start TPN in the hospital and had paracentesis tomorrow. Patient is found to have a sodium of 129 potassium of 6 and creatinine 2.87. He'll be placed on IV fluids and TPN has been ordered. Patient denies any fever chills or sweats. Denies any chest pain or shortness of breath. Does not having nausea poor appetite and episodes of vomiting. He did have a stool yesterday which is hard and formed. He denies any chest pain or shortness of breath. Denies any burning with urination. He does report that he is urinating adequately. Patient also has a known history of hypertension hyperlipidemia and hypothyroidism. As well as a history of chronic kidney disease. She also has been having falls at home. No loss of consciousness. Last fall was last week. 11/08/2017 patient had PICC line in place and his been started on TPN. No episodes of vomiting today. He is scheduled for paracentesis. He has been seen by nephrology. Creatinine has shown improvement IV fluids. Scheduled for barium swallow and speech therapy evaluation. Patient denies any chest pain or shortness of breath. No bowel movement today. Denies any burning with urination. global sales manager is working on insurance coverage in regards to the TPN. On 11/09/2017 Pushpa Parkinson NP per oncology had in-depth conversation with patient and family yesterday in regards to treatment. Patient and family agreed to meet with hospice and discussed pigtail catheter placement to help patient "few more comfort". Interventional radiology consulted for possible pigtail placement. Nursing staff that they are unable to place catheter at this facility. Discussed case with oncology LAB COURIER. Family meeting with hospice. At this time patient denies chest pain or shortness of breath. Patient is currently getting TPN. On 11/10/2017 per patient and family have decided to go home with home health care at this time. Patient declined any pigtail cath placement at this time will address outpatient. Patient will go home on TPN. Case management arranged. Spoke to Dr. xiong oncology office. Will fill home dose of Roxanol through office. Updated the patient or family should report to office for Roxanol prescription upon discharge. At this time patient and family are eager to go home. Oncology updated on patient being DC'd home with home health care at this time and declining pigtail placement. At this time patient denies chest pain or shortness breath. Patient denies nausea vomiting or diarrhea. Patient denies any urinary burning or frequency patient to follow-up closely with primary care provider and consulting providers I performed an examination of the patient and discussed their management with the Nurse Practitioner. I have reviewed the Nurse Practitioner's notes and agree with the documented findings and plan of care Patient Condition at Discharge: Stable Plan - Discharge Summary Discharge Rx Participant: No New Discharge Prescriptions: New Sodium Bicarbonate Tab 650 mg PO BID 30 Days #60 tab Continue Levothyroxine Sodium 150 mcg PO DAILY Pantoprazole Sodium [Protonix] 40 mg PO AC-BID Ondansetron [Zofran] 4 mg SL Q12HR PRN PRN Reason: Nausea MORPHINE ORAL JUAN ALBERTO CONC 20mg/mL [Roxanol Oral Soln Conc 20MG/ML] 10 mg PO Q4H PRN PRN Reason: pain Hyoscyamine Sulfate [Levsin] 0.125 mg PO Q12HR Sennosides-Docusate Sodium [Senokot-S] 1 tab PO DAILY PRN PRN Reason: Constipation Discharge Medication List Levothyroxine Sodium 150 mcg PO DAILY 05/29/17 [History] Pantoprazole Sodium [Protonix] 40 mg PO AC-BID 05/29/17 [History] Ondansetron [Zofran] 4 mg SL Q12HR PRN 10/18/17 [History] MORPHINE ORAL JUAN ALBERTO CONC 20mg/mL [Roxanol Oral Soln Conc 20MG/ML] 10 mg PO Q4H PRN 11/01/17 [History] Hyoscyamine Sulfate [Levsin] 0.125 mg PO Q12HR 11/07/17 [History] Sennosides-Docusate Sodium [Senokot-S] 1 tab PO DAILY PRN 11/07/17 [History] Sodium Bicarbonate Tab 650 mg PO BID 30 Days #60 tab 11/10/17 [Rx] Follow up Appointment(s)/Referral(s): Salome Caba MD [STAFF PHYSICIAN] - 11/17/17 10:15 am [facility], [REFERRING[facility] - [facility] 6[facility] Tu Hidalgo MD [STAFF PHYSICIAN] - 11/22/17 4:30 pm Patient Instructions/Handouts: Malnutrition (DC), Peripherally Inserted Central Catheters and Midline Catheters (DC) Activity/Diet/Wound Care/Special Instructions: Regular diet. TPN and lipids to be infused through PICC line 24 hours per day, pharmacy will dose. Up with assist, fall precautions. [facility] [phone], Apple SNIDER from [place] will come to your house [facility] to assist with set up of TPN. Spoke with Dr. Xiong office. Will fill Roxonal script for patient. Patient to go to oncology office to warp picker script. Discharge Disposition: HOME WITH HOME HEALTH SERVICES
== END 2017-11-10 15:00 | disposition home health service (06) | DRG 435 ==
LOC: CATHCVL 12:16 → 4MS4W 15:02 → OBSVTOIN 11-08 08:34 → 4MS4W 11-09 22:38
PROVIDERS: ADMIT Internal Medicine; ATTEND Internal Medicine
PROC: 02HV33Z Insertion of Infusion Device into Superior Vena Cava, Percutaneous Approach (ICD-10-PCS; 2017-11-07 13:52)
PROC: 0W9G3ZZ Drainage of Peritoneal Cavity, Percutaneous Approach (ICD-10-PCS; principal; 2017-11-08)
DX: C78.7 Secondary malignant neoplasm of liver and intrahepatic bile duct (principal); E43 Unspecified severe protein-calorie malnutrition; E87.1 Hypo-osmolality and hyponatremia; E87.2 Acidosis; N17.9 Acute kidney failure, unspecified; N18.4 Chronic kidney disease, stage 4 (severe); R18.8 Other ascites; Z68.1 Body mass index [BMI] 19.9 or less, adult; E03.9 Hypothyroidism, unspecified; E78.5 Hyperlipidemia, unspecified; E83.39 Other disorders of phosphorus metabolism; E86.0 Dehydration; E87.5 Hyperkalemia; E87.70 Fluid overload, unspecified; I12.9 Hypertensive chronic kidney disease with stage 1 through stage 4 chronic kidney disease, or unspecified chronic kidney disease; K21.9 Gastro-esophageal reflux disease without esophagitis; K59.00 Constipation, unspecified; Z66 Do not resuscitate; Z82.49 Family history of ischemic heart disease and other diseases of the circulatory system; Z87.891 Personal history of nicotine dependence; Z90.49 Acquired absence of other specified parts of digestive tract; Z92.21 Personal history of antineoplastic chemotherapy; Z85.038 Personal history of other malignant neoplasm of large intestine
CPT/HCPCS: 36569; 49083; 74220; 76937; 77001; 80051; 80053; 82330; 82565; 83036; 83735; 84100; 84478; 84520; 85025; 85610

== ENCOUNTER 2017-11-15 11:59 | Day surgery (SDC) | payer MEDICARE ==
[2017-11-15 12:51] LABS: Platelet Count 176 k/uL (150-450)
[2017-11-15 13:06] LABS: INR 1.2 (<1.2); Prothrombin Time 11.7 sec (9.0-12.0)
[2017-11-15 13:33] VITALS: RESP 16; TEMP 97.5
[2017-11-15] MEDS: ALBUMIN HUMAN 25% 50 ML in EMPTY BAG 1 BAG IVPB SCH ×2 (15:00→15:14)
[2017-11-15 15:47] VITALS: BP 126/69; PULSE 74
--- NOTE | 2017-11-15 15:56 | US ---
EXAMINATION TYPE: US paracentesis abd w/image DATE OF EXAM: 11/15/2017 COMPARISON: NONE HISTORY: Ascites. PROCEDURE: Maximal barrier technique was utilized. The skin overlying a suitable pocket of fluid was localized with ultrasound and the overlying skin was prepped and draped. Ultrasound was utilized with sterile technique. Lidocaine was used for local anesthesia and a skin oly made with a scalpel. Catheter was advanced under direct ultrasound guidance into a suitable pocket of fluid and approximately 3.7 liter s of serous fluid were removed. Catheter was withdrawn and hemostasis achieved. There is no immedia te complication; the patient is discharged in stable condition. IMPRESSION: STATUS POST ULTRASOUND GUIDED PARACENTESIS FOR PALLIATION OF ASCITES. THIS PROCEDURE WA S PERFORMED BY THE UNDERSIGNED. Specimen obtained for laboratory analysis.
== END 2017-11-15 15:45 | disposition home or self-care (01) ==
LOC: RADPROMAIN 11:59
PROVIDERS: ATTEND Internal Medicine Hematology & Oncology
DX: R18.8 Other ascites (principal)
CPT/HCPCS: 85049; 85610; 49083; P9047